=== PATIENT | male | born 1960 | race Caucasian/White ===

== ENCOUNTER → 2016-07-20 | Outpatient (CLI) | payer OTHER ==
[2016-07-12 13:05] VITALS: BMI 35.5
[2016-07-20 14:24] VITALS: BP 155/93; PULSE 69; RESP 16; TEMP 98
--- NOTE | 2016-07-20 15:22 | P.CONS ---
History of Present Illness - Reason for Consult Consult date: 07/20/16 - History of Present Illness This is the initial consultation visit for this 56 years old male with a chronic history of severe low back pain and left sided abdominal pain, she was diagnosed with lymphoma, in 2010, and he had chemotherapy and he was diagnosed with enlarged spleen, and later on he had recurrence of his left-sided abdominal pain after he had recurrence of lymphoma, he gets another cycle of chemotherapy, and his abdominal pain improved, but he continued to have severe low back pain, localized in the low back area with radiation to the posterior and lateral aspect of his lower extremity, he denies any motor or sensory deficit, he denies any change in the bowel movement or urination, but she reported that the intensity of the pain fluctuates between 6/10 and increases with any activity to 10 over 10, he never tried any injection, he never had any surgical intervention, and he tried Neurontin but he doesn't know the dose, and he tried Ultram without any benefit, he is currently taking Flexeril would make him sleepy, and he is here today trying to find anything can help to control his pain Past Medical History Past Medical History: Cancer, Chest Pain / Angina, COPD, Osteoarthritis (OA) Additional Past Medical History / Comment(s): all over body pain, rt hip and leg , neck and back, enlarged spleen, nonhodgkins lymphoma x2- 2010, 2016. SKIN CANCER. History of Any Multi-Drug Resistant Organisms: MRSA Year Discovered:: 2012 MDRO Source:: ear Past Surgical History: Hernia Repair, Joint Replacement, Orthopedic Surgery Additional Past Surgical History / Comment(s): rt hip replacement, rt rotator cuff repair, lt wrist plate, 4 bone marrow biopsies Past Anesthesia/Blood Transfusion Reactions: Previous Problems w/ Anesthesia Additional Past Anesthesia/Blood Transfusion Reaction / Comm: woke up during surgery Past Psychological History: Depression Smoking Status: Current every day smoker Past Alcohol Use History: Occasional Additional Past Alcohol Use History / Comment(s): smoker 35 years 1 ppd quit 2013 has occasional cigarette Past Drug Use History: None Reported Additional Drug Use History / Comment(s): MARIJUANA USED 2 WEEKS AGO- "NOT A LOT ". - Past Family History Mother Family Medical History: No Reported History Medications and Allergies Home Medications Medication Instructions Recorded Confirmed Type Albuterol Inhaler [Ventolin Hfa 1 - 2 puff INHALATION DAILY PRN 07/12/16 History Inhaler] Ascorbic Acid [Vitamin C] 1,000 mg PO DAILY 07/12/16 07/20/16 History Aspirin [Adult Low Dose Aspirin EC] 81 mg PO DAILY 07/12/16 07/20/16 History Cholecalciferol [Vitamin D3] 1,000 unit PO DAILY 07/12/16 07/20/16 History Cyclobenzaprine [Flexeril] 10 mg PO TID PRN 07/12/16 07/20/16 History DULoxetine HCL [Cymbalta] 30 mg PO DAILY 07/12/16 07/20/16 History Ibuprofen [Motrin] 800 mg PO DAILY PRN 07/12/16 07/20/16 History Mometasone/Formoterol [Dulera 100 2 puff INHALATION BID 07/12/16 07/20/16 History Mcg/5 Mcg Inhaler] Nitroglycerin 0.4 mg SL DIRECTED PRN 07/12/16 07/20/16 History Pantoprazole Sodium [Protonix] 20 mg PO DAILY 07/12/16 07/20/16 History Allergies Allergy/AdvReac Type Severity Reaction Status Date / Time bee sting Allergy Anaphylaxis Uncoded 07/20/16 14:00 Physical Exam Vitals: Vital Signs Temp Pulse Resp BP Pulse Ox 07/20/16 14:11 98 F 69 16 155/93 97 Social history : smoker , NO ETOH , used marijuana occasionaly Review of Systems : 1- Constitutional : no chills , no fever , no night sweats , 2- Ears : no ear discharge , no change in hearing 3-Nose, Mouth ,Throat ; no bleeding gums, no sore throat , no epistaxis , 4-Cardiovascular : Denies chest pain, , no orthopnea , no palpitation 5-Respiratory : Denies cough , no dyspnea , no hemoptysis 6-Gastrointestinal :, no change in bowel habits , no coffee- ground emesis . 7-Genitourinary : No hematuria , no discharge , no incontinence, 8-Musculoskeletal : No gait dysfunction , report low back pain , 9- Neurological : no ataxia , no tremor , no sezure , 10-Psychatric , no suicidal ideation no hallucination 11- Endocrine : no cold intolerence , no polyuria , no polydypsia , 12-Hematologic : History of lymphoma 13-Allergic / immunology : no angioedema , no wheezing ,no allergic rhinitis 14-Integumentary : no brttle nails , no change hair / nails , no foot/leg ulcers . Physical Examinations : 1-Constitutional : Cooperative , not in acute distress . 2-HEENT : nech ; supple , no Lymphadenopathy , no Thyromegaly , :eyes , no icterus, no photophobia . ENT : , normal oropharynx , no Thrush 3- Respiratory : Chest clear to auscultations Bilaterally , no wheezing . 4- Cardiovascular : regular rate and rhythem , S1 , S2 , no S3 , no S4. 5- Gastrointestinal: abdomen soft minimal tenderness left upper quadrant, no organomegally . 6- Genitourinary : Defferred . 7-Integumentary : No cellulitis , no ulcers , normal skin turgor , no cyanotic . 8- neurologic : Cranial nerve II to XII intact , no focal neurological deffecit 9-psychatric : alert , oriented X 3 , appropriate affect , intact judgment and insight . 10-Lymphatic : no Lymphadenopathy. 11- musculoskeltal: normal gait , exams of the cervical spine = motor stregnth in the deltoid and biceps, normal right side , normal Left side exams of the Lumber spine = moter stegnth lower extremities , thigh and legs 5/5 Right side , 5/5 Left side deep tendon reflexes : normal Knee Jerk , normal ankle Jerk positive lumber facet Loading Test Range of motion of the lumbar spine Flexion 30 degrees, extension 10 degrees strait leg raising test negative bilaterally Fabere test negative bilaterally Results Comments: Computed tomography scan area of the lumbar spine in February 2016 = L3 4 through L5-S1 lumbar bulging disc disease and mild foraminal stenosis, and lumbar facet arthropathy Assessment and Plan Plan: Assessment and plan = - Chronic low back pain secondary to lumbar degenerative disc disease , lumbar spondylosis with facet arthropathy without myelopathy , Patient had right hip avascular necrosis after she was treated with steroids ( during his chemo therapy to Tx lymphoma) and he has to have a right hip replacement The patient signed narcotic agreement today, and he was instructed not to use any marijuana in the future, and we told him that any use of marijuana would be violation of the contract we can discharge him from the clinic The patient was counseled about risk of opioid use, psychological risk associated with opioids discussed with the patient, body mass index and exercise. Patient signed the narcotic agreement , and was orally counseled not to overuse , abuse , divert, or sell medications ,and take them as prescribed only , and the patient was counseled against driving and while you are using the narcotic medication also not to use alcohol or any illicit drugs and the patient verbalized understanding that lack of compliance and could result in failure to renew narcotics prescriptions and possible discharge from the clinic - diagnoses, prognosis, and treatment options including but not limited to physical therapy, surgical interventions, interventional therapies and medication management including narcotics and adjuvant medication were discussed with the patient and all questions answered to the patient's satisfaction. -medication refile =1-[place] 5/325 every 6 hours dispensed 90 2-Neurontin 100 mg 3 times a day 3-Flexeril 5 mg tablet 3 times a day -procedure= bilateral medial branch block lumbar area at l34/L4-L5/L5-S1 elicits positive on 2 different occasions then we will do radiofrequency ablation of the medial branch lumbar area NO steroid will be used for the procedure because the patient had avascular necrosis of the headache after he was treated with the stimulator., next Visit will do a urine drug screen Time with Patient: Greater than 30
== END | disposition home or self-care (01) ==
LOC: PNWHC3 13:15
PROVIDERS: ATTEND Specialist
DX: M51.36 Other intervertebral disc degeneration, lumbar region (principal); M47.816 Spondylosis without myelopathy or radiculopathy, lumbar region; M46.96 Unspecified inflammatory spondylopathy, lumbar region; M87.188 Osteonecrosis due to drugs, other site; T38.0X5A Adverse effect of glucocorticoids and synthetic analogues, initial encounter; F32.9 Major depressive disorder, single episode, unspecified; Z79.899 Other long term (current) drug therapy; F17.200 Nicotine dependence, unspecified, uncomplicated; Z91.030 Bee allergy status; Z85.72 Personal history of non-Hodgkin lymphomas; Z92.21 Personal history of antineoplastic chemotherapy; R07.9 Chest pain, unspecified; I20.9 Angina pectoris, unspecified; J44.9 Chronic obstructive pulmonary disease, unspecified; M19.90 Unspecified osteoarthritis, unspecified site
CPT/HCPCS: 99201

== ENCOUNTER 2016-08-29 08:11 | Day surgery (SDC) | payer OTHER ==
[2016-08-25 15:06] VITALS: BMI 37.1
[~2016-08-29 08:11] MED LIST: LACTATED RINGERS 1,000 ML IV SCH
[2016-08-29 08:27] VITALS: TEMP 97.7
[2016-08-29] MEDS ORDERED: BUPIVACAINE (PF) 0.5% 30 ML VIAL ONE (09:03)
--- NOTE | 2016-08-29 09:28 | P.PCN ---
Date of Procedure: 08/29/16 Procedure(s) Performed: PREOPERATIVE DIAGNOSIS : 1- Lumbar spondylosis with Facet Arthropathy without myelopathy POSTOPERATIVE DIAGNOSIS: 1- Lumbar spondylosis with Facet Arthropathy without myelopathy . PROCEDURE: Diagnostic bilateral L3 -4 , L4 -5 , and L5-S1 medial branch block under fluoroscopy ANESTHESIA: Local with 1% lidocaine 6 ml , EBL: Minimal COMPLICATION: None. PROCEDURE INDICATION: Chronic low back pain secondary to Facet arthropathy unresponsive to conservative treatment. PROCEDURE DESCRIPTION: the patient was seen and identified in the preop holding area , risks and benefits and possible complications of the procedure and alternative were discussed with the patient, and the patient agreed to proceed with the procedure and signed the consent IV was started and vital signs monitored during the procedure and fluoroscopy was used to maximize the benefit and accuracy of the needle placement, patient was taken to the procedure room and placed in prone position vital signs monitored in the back prepped with chlorhexidine X3 then under strict sterile technique using a right oblique fluoroscopy ,the junction of the transverse process and the superior articulating process of the right L3- 4 , L4- 5, and L5-S1 vertebra which corresponding to the fluoroscopy image of the eye of the Sascha dog on the block side for the medial branches and subsequently , after local infiltration of skin and subcu tissuies with lidocaine 1% one mL at each level ,then 25-gauge Quincke-type needles , 3 needle was used , each one of them placed at the junction of the base of the transverse process and the superior articular process at the appropriate level, and the needle was advanced until the periosteum contacted, needle placement confirmed with AP oblique and lateral view and after appropriate needle placement confirmed, and after negative aspiration for heme and CSF and there was no paresthesia 1-1/2 mL of Marcaine 0.5% , then half mL injected at each level after negative aspiration the needle subsequently removed and the same procedure repeated for the left side at left side at L3-4, L4- 5 and L5-S1 levels. At the end of the procedure and the needles removed and a bandage applied after the skin was cleaned the cleaning solution patient taken to recovery room in stable condition and monitors in the recovery room for 20-30 minutes and discharged home in stable condition after discharge criteria met and patient will follow up with the pain clinic in 2-4 weeks No IV sedation was given, because patient had food 4 hours before the procedure , and no steroid was used for the procedure.
--- NOTE | 2016-08-29 09:39 | FL ---
Fluoroscopy INDICATION: Pain FINDINGS: Fluoroscopy time: 9 seconds. Images obtained: 4. IMPRESSIONS: 1. Documentation of fluoroscopy.
[2016-08-29 09:52] VITALS: BP 134/82; PULSE 66; RESP 16
== END 2016-08-29 09:59 | disposition home or self-care (01) ==
LOC: ORPAIN 08:11
PROVIDERS: ATTEND Specialist
DX: G89.29 Other chronic pain (principal); M47.816 Spondylosis without myelopathy or radiculopathy, lumbar region; M46.96 Unspecified inflammatory spondylopathy, lumbar region; C85.90 Non-Hodgkin lymphoma, unspecified, unspecified site; I25.10 Atherosclerotic heart disease of native coronary artery without angina pectoris; J44.9 Chronic obstructive pulmonary disease, unspecified; F17.200 Nicotine dependence, unspecified, uncomplicated; Z91.030 Bee allergy status
CPT/HCPCS: 80307; 80346; 80364

== ENCOUNTER 2016-09-29 07:37 | Day surgery (SDC) | payer OTHER ==
[2016-09-28 09:16] VITALS: BMI 35.5
[2016-09-29 07:59] VITALS: RESP 18; TEMP 96.6
[2016-09-29] MEDS ORDERED: LIDOCAINE 1% 20 ML VIAL (10MG/ML) FOR IV START SQ ONE (08:01)
[2016-09-29] MEDS ORDERED: TRIAMCINOLONE ACETONIDE 40 MG/ML 1 ML VIAL ONE (08:27)
[2016-09-29] MEDS ORDERED: BUPIVACAINE (PF) 0.5% 30 ML VIAL ONE (08:27)
[2016-09-29] MEDS ORDERED: fentaNYL (PF) 50 MCG/ML 2 ML AMP ONE (08:27)
[2016-09-29] MEDS ORDERED: MIDAZOLAM 2 MG/2 ML VIAL ONE (08:27)
[2016-09-29] MEDS ORDERED: IV FLUID CONTINUATION 1,000 ML IV ONE (08:57)
--- NOTE | 2016-09-29 08:57 | P.PCN ---
Date of Procedure: 09/29/16 Procedure(s) Performed: PREOPERATIVE DIAGNOSIS : 1- Lumbar spondylosis with Facet Arthropathy without myelopathy . POSTOPERATIVE DIAGNOSIS: 1- Lumbar spondylosis with Facet Arthropathy without myelopathy . PROCEDURE: Diagnostic bilateral L3 -4 , L4 -5 , and L5-S1 medial branch block under fluoroscopy ANESTHESIA: Local with 1% lidocaine 6 ml ; IV sedation with Versed 2 mg and Fentanyl 100 mcg. EBL: Minimal COMPLICATION: None. IV FLUIDS: 100 mL of normal saline. PROCEDURE INDICATION: Chronic low back pain secondary to Facet arthropathy unresponsive to conservative treatment. PROCEDURE DESCRIPTION: the patient was seen and identified in the preop holding area , risks and benefits and possible complications of the procedure and alternative were discussed with the patient, and the patient agreed to proceed with the procedure and signed the consent IV was started and vital signs monitored during the procedure and fluoroscopy was used to maximize the benefit and accuracy of the needle placement, and sedation was given to decrease patient anxiety, patient was taken to the procedure room and placed in prone position vital signs monitored in the back prepped with chlorhexidine X3 then under strict sterile technique using a right oblique fluoroscopy ,the junction of the transverse process and the superior articulating process of the right L3- 4 , L4- 5, and L5-S1 vertebra which corresponding to the fluoroscopy image of the eye of the Sascha dog on the block side for the medial branches and subsequently , after local infiltration of skin and subcu tissuies with lidocaine 1% one mL at each level ,then 22- gauge Quincke-type needles , 3 needle was used , each one of them placed at the junction of the base of the transverse process and the superior articular process at the appropriate level, and the needle was advanced until the periosteum contacted, needle placement confirmed with AP oblique and lateral view and after appropriate needle placement confirmed, and after negative aspiration for heme and CSF and there was no paresthesia 1-1/2 mL of Marcaine 0.5% mixed with 40 mg Kenalog , then half mL injected at each level after negative aspiration the needle subsequently removed and the same procedure repeated for the left side at left side at L3-4, L4- 5 and L5-S1 levels. At the end of the procedure and the needles removed and a bandage applied after the skin was cleaned the cleaning solution patient taken to recovery room in stable condition and monitors in the recovery room for 20-30 minutes and discharged home in stable condition after discharge criteria met and patient will follow up with the pain clinic in 2-4 weeks
--- NOTE | 2016-09-29 09:07 | FL ---
EXAMINATION TYPE: FL guided pain mgmt statistic DATE OF EXAM: 09/29/2016 8:56 AM HISTORY: Pain BILATERAL FACET INJECTIONS was performed. 29 SEC FL, 4 FILMS SCANNED
[2016-09-29 09:24] VITALS: BP 127/81; PULSE 62
== END 2016-09-29 09:38 | disposition home or self-care (01) ==
LOC: ORPAIN 07:37
PROVIDERS: ATTEND Specialist
DX: G89.29 Other chronic pain (principal); M54.5 Low back pain; M47.816 Spondylosis without myelopathy or radiculopathy, lumbar region; M46.96 Unspecified inflammatory spondylopathy, lumbar region; Z91.030 Bee allergy status; Z91.038 Other insect allergy status
CPT/HCPCS: 64493; 64494; 64495; 99152; J2250; J3301; J3010

== ENCOUNTER 2016-11-03 11:51 | Day surgery (SDC) | payer OTHER ==
[2016-11-01 11:47] VITALS: BMI 35.5
[2016-11-03] MEDS: LACTATED RINGERS 1,000 ML IV SCH ×2 (12:22→12:28)
[2016-11-03 12:24] VITALS: RESP 18; TEMP 96.4
[2016-11-03] MEDS ORDERED: MIDAZOLAM 2 MG/2 ML VIAL ONE (12:32)
[2016-11-03] MEDS ORDERED: BUPIVACAINE (PF) 0.5% 30 ML VIAL ONE (12:32)
[2016-11-03] MEDS ORDERED: DEXAMETHASONE SOD PHOS (MDV) 100 MG/10 ML VIAL ONE (12:32)
[2016-11-03] MEDS ORDERED: fentaNYL (PF) 50 MCG/ML 2 ML AMP ONE (12:32)
--- NOTE | 2016-11-03 13:06 | P.PCN ---
Date of Procedure: 11/03/16 Preoperative Diagnosis: Postoperative Diagnosis: Procedure(s) Performed: PREOPERATIVE DIAGNOSIS: 1-Lumbar Spondylosis with Facet Arthropathy without myelopathy. 2- Lumber degenerative disc disease POSTOPERATIVE DIAGNOSIS: 1- Lumbar Spondylosis with Facet Arthropathy without myelopathy. 2- Lumber degenerative disc disease. PROCEDURES : Right Radiofrequency thermocoagulation, L3-L4, L4-L5, and L5-S1 medial branch, with fluoroscopic guidance ANESTHESIA: IV sedation with versed 2 mg and fentaneyl 100 mcg and local infiltration with lidocaine 1% 6 ml EBL: Minimal PROCEDURE INDICATION: The patient with low back pain secondary to lumbar facet arthropathy who had more than 50% relief of her pain with previous diagnostic lumbar medial branch block with bupivacaine. PROCEDURE DESCRIPTION / TECHNIQUE: The patient was seen and identified in the preoperative area. Risks, benefits, complications, including but not limited to risk of infection ,bleeding , allergic reactions to the medications and no complete pain releife , and alternatives were discussed with the patient, the patient agreed to proceed with the procedure and signed the consent. IV was started. Vital signs remained stable throughout the procedure. Patient was taken to the OR and time out was completed. The patient was placed in the prone position on the procedure table. The lumber area was prepped and draped in the usual sterile fashion. . Vital signs were closely monitored during the procedure .IV sedation was used during the procedure to decrease patients anxiety. Using AP and then oblique fluoroscopy, the ``eye of the Sascha dog corresponding to the connection between the superior and transverse articular processes of right L3, L4, and L5 were identified, marked, and localized with 1 % lidocaine. Subsequently, a 18 [id number] radiofrequency cannula with a 10- mm active tip was advanced guided by fluoroscopy to each of the ``eyes of the Sascha dog at right L3, L4, and L5. Each site then underwent sensory testing at 50 Hz and 0 to 1 volt and motor testing at 2.5 Hz and 0 to 3 volt with local stimulation, but no radicular symptoms down the legs. Thereafter the right L3-4, L4-5, and L5-S1 sites underwent radiofrequency thermocoagulation at 80 degrees celsius for 90 seconds after injecting 0.5 ml of PF lidocaine 1%. then After the thermocoagulation done , 1 ml of the block solution containing Kenalog 40 mg and 3 ml of marain 0.5% was injected at the right L3- 4 , L4-5 , and L5-S1, levels after negative aspiration of CSF and blood and with no paresthesias. Cannulas were retracted while injecting lidocaine 1% until the needle is out. At the end of the procedure, the skin was cleansed and bandages were applied. COMPLICATIONS: No acute complications. DISPOSITION / PLANS: The patient was placed in a supine position and transferred to the recovery area in a stable condition for observation and was discharged from the recovery room after meeting discharge criteria. Home discharge instructions given to the patient by the staff. The patient was reexamined prior to discharge. The patient will schedule a follow up in the clinic in 2-4 weeks. Patient given prescription refill for [place] 5/325 every 6-8 hours dispense 90 with 1 refill, and the Neurontin 100 mg every 8 hours dispense 90 with 1 refill and Flexeril 10 mg every 8 hours dispense 90 with 1 refill Implants: Indications for Procedure: Operative Findings: Description of Procedure:
--- NOTE | 2016-11-03 13:11 | FL ---
EXAMINATION TYPE: FL guided pain mgmt statistic DATE OF EXAM: 11/03/2016 CLINICAL HISTORY: Low back pain. TECHNIQUE: Fluoroscopy. COMPARISON: None. FINDINGS: Fluoroscopic guidance was provided during pain relief procedure performed by Dr. Tim . A total of 13 seconds of fluoroscopic time was utilized during the procedure and 3 spot images are acquired. Images acquired shows needle localization at several levels in the lower lumbar spine. IMPRESSION: As Above.
[2016-11-03] MEDS ORDERED: IV FLUID CONTINUATION 1,000 ML IV ONE (13:36)
[2016-11-03 13:42] VITALS: BP 132/76; PULSE 86
== END 2016-11-03 14:06 | disposition home or self-care (01) ==
LOC: ORPAIN 11:51
PROVIDERS: ATTEND Specialist
DX: M47.816 Spondylosis without myelopathy or radiculopathy, lumbar region (principal); M46.96 Unspecified inflammatory spondylopathy, lumbar region; M51.36 Other intervertebral disc degeneration, lumbar region; Z91.030 Bee allergy status
CPT/HCPCS: 64635; 64636; 99152; J2250; J3010; J1100

== ENCOUNTER 2016-12-15 08:53 | Day surgery (SDC) | payer OTHER ==
[2016-12-14 10:22] VITALS: BMI 34.7
[~2016-12-15 08:53] MED LIST changes: +LACTATED RINGERS 1,000 ML IV ONE; -LACTATED RINGERS 1,000 ML IV SCH
[2016-12-15] MEDS ORDERED: LIDOCAINE 1% 20 ML VIAL (10MG/ML) FOR IV START INTRADERMA ONE (09:25)
[2016-12-15 09:28] VITALS: TEMP 97.2
--- NOTE | 2016-12-15 09:50 | P.PCN ---
Date of Procedure: 12/15/16 Preoperative Diagnosis: Postoperative Diagnosis: Procedure(s) Performed: Implants: Surgeon: Shabbir Beck Pathology: none sent Condition: stable Disposition: PACU Indications for Procedure: Operative Findings: Description of Procedure: PREOPERATIVE DIAGNOSIS: Lumbar spondylosis without myelopathy and facet arthropathy POSTOPERATIVE DIAGNOSIS: Lumbar spondylosis without myelopathy and facet arthropathy PROCEDURES: Left Radiofrequency thermocoagulation, L3-L4, L4-L5, and L5-S1 medial branch, with fluoroscopic guidance. ANESTHESIA: 1% lidocaine plain; Conscious sedation with versed/fentanyl EBL: Minimal PROCEDURE INDICATION: The patient with low back pain secondary to lumbar arthropathy who had more than 50% relief of pain with previous diagnostic lumbar medial branch block with bupivacaine. Patient presents for left lumbar RFA today after good relief from right side; no use of blood thinners except ASA 81 mg. PROCEDURE DESCRIPTION / TECHNIQUE: The patient was seen and identified in the preoperative area. Risks, benefits, complications, and alternatives were discussed with the patient (including but not limited to incomplete pain relief , bleeding, infection, nerve damage, and allergies to medications), the patient agreed to proceed with the procedure and signed the consent after all questions were answered. Patient was taken to the OR and time out was completed to verify proper patient , position, laterality of pain, and allergies. Pt was placed in the prone position. IV was started. Vital signs remained stable throughout the procedure. A pillow was placed under the patients chest to decrease lordosis. The lumbosacral area was prepped and draped in the usual sterile fashion. Vital signs were closely monitored during the procedure. Conscious sedation was used during the procedure to decrease patients anxiety. Using AP and then oblique fluoroscopy, the eye of the Sascha dog corresponding to the connection between the superior and transverse articular processes of left L4, L5 and top of the sacrum were identified, marked, and localized with 1% lidocaine. Subsequently, a 20 gauge, 100-mm radiofrequency cannula with a 10-mm active tip was advanced guided by fluoroscopy to each of the eyes of the Sascha dog at left L3, L4, and L5 medial branches. Each site then underwent sensory testing at 50 Hz and 0 to 1 volt and motor testing at 2 Hz and 0 to 3 volt with local stimulation, but no radicular symptoms down the legs. Thereafter the left L3, L4, and L5 medial branch sites underwent radiofrequency thermocoagulation at 80 degrees Celsius for 90 seconds after injecting 0.5 ml of PF lidocaine 1%. After thermocoagulation, 1 ml of the block solution containing Kenalog 40 mg and 2 mL of preservative-free normal saline was injected at the left L3, L4, and L5 medial branch levels after negative aspiration of CSF and blood and with no paresthesias. Cannulas were retracted while injecting lidocaine 1% until the needles were removed. At the end of the procedure, the skin was cleansed and bandages were applied. COMPLICATIONS: No acute complications. DISPOSITION / PLANS: The patient was placed in a supine position and transferred to the recovery area in a stable condition for observation and was discharged from the recovery room after meeting discharge criteria. Home discharge instructions given to the patient by the staff. The patient was reexamined prior to discharge and there were no issues. The patient will schedule a follow up in the clinic in 2-4 weeks as both RFAs completed.
--- NOTE | 2016-12-15 09:58 | FL ---
EXAMINATION TYPE: FL guided pain mgmt statistic DATE OF EXAM: 12/15/2016 HISTORY: Pain 14 sec FL, 4 images scanned
[2016-12-15] MEDS ORDERED: IV FLUID CONTINUATION 1,000 ML IV ONE (10:06)
[2016-12-15 10:11] VITALS: RESP 16
[2016-12-15 10:27] VITALS: BP 116/73; PULSE 66
== END 2016-12-15 10:36 | disposition home or self-care (01) ==
LOC: ORPAIN 08:53
PROVIDERS: ATTEND Anesthesiology
DX: M47.816 Spondylosis without myelopathy or radiculopathy, lumbar region (principal); M46.96 Unspecified inflammatory spondylopathy, lumbar region; I20.9 Angina pectoris, unspecified; E78.5 Hyperlipidemia, unspecified; K21.9 Gastro-esophageal reflux disease without esophagitis; Z79.82 Long term (current) use of aspirin; Z79.891 Long term (current) use of opiate analgesic; Z79.899 Other long term (current) drug therapy; Z91.030 Bee allergy status
CPT/HCPCS: 64635; 64636 ×2; 99152; J3301; 99153

== ENCOUNTER → 2017-01-30 | Outpatient (CLI) | payer OTHER ==
[2017-01-30 12:07] VITALS: BP 157/86; PULSE 61; RESP 16
--- NOTE | 2017-01-30 12:26 | P.PN ---
Progress Note - Text Patient returns for followup for chronic back pain with radiation to LLE. Patient recently underwent bilateral lumbar RFA, which provided some relief for 3-4 weeks' interval apiece, but patient is complaining of pain now that is slightly higher in his lumbar spine than his usual pain, and he is a poor historian, so statements are somewhat equivocal. Patient continues on [place], Neurontin, Flexeril medications for pain with good relief. Patient denies adverse drug effects from medications. Today, pt denies new-onset weakness, bowel/bladder incontinence, or any other signs or symptoms of cauda equina syndrome. There are no signs of acute intoxication, and no indications of medication diversion or overuse. In addition to above, 13-point review of systems is also negative for chest pain , shortness of breath, changes in vision, changes in hearing, new onset weakness , abdominal pain, diarrhea, extreme fatigue, malaise, fever, skin changes, homicidal or suicidal ideation, or bowel or bladder incontinence. Vital Signs: Reviewed in EMR Gen: WDWN, AAOx3, NAD HEENT: NCAT, EOMI, hearing grossly normal Pulm: resp unlabored Abd: soft, NT, ND Neck: supple, trachea midline ROM in flexion lumbar spine: reduced ROM in extension lumbar spine: reduced Lumbar paravertebral tenderness: + Facet loading: + bilateral, L >> R SI joint tenderness: neg Christopher's test: + L > R side Straight leg raise: neg Neuro: CN II-XII grossly intact, muscle strength lower extremities PRESERVED Imaging: Reviewed in EMR Assessment: 1. lumbar spondylosis without myelopathy 2. SIJ dysfunction 3. chronic pain syndrome Plan: 1. Explanation: Opioid and psychological risk scores were reviewed. Diagnoses , prognoses, and multiple treatment options including but not limited to physical therapy, interventional therapies, adjuvant medical therapies, narcotic medication therapies, and surgery were discussed with the patient and all questions were answered to the patient's satisfaction. 2. Opioid agreement: Patient has previously signed narcotic agreement, and was orally counseled to not overuse, abuse, divert, or cell medications, and to take them as prescribed by only 1 healthcare provider. The patient was also counseled to store opioid medications in a safe and preferably locked location. Patient was also counseled against driving or operating heavy equipment while using narcotic medications and also to not use alcohol or any illicit or recreational drugs. The patient verbalized understanding that lack of compliance with any of the above and likely result in failure to renew narcotic prescriptions, possible discharge from the clinic, and possible legal ramifications thereafter if indicated. 3. Counseling: The patient was counseled extensively on SMOKING CESSATION, BODY MASS INDEX, EXERCISE. Specifically, the patient was instructed regarding the importance of smoking cessation, weight control, and exercise in the context of both chronic pain and overall health. 4. Procedures: none for now 5. Consultations: None 6. Investigations: None 7. Medications: [place] 5/325 #90 with one refill, Flexeril 10 mg #90 and Neurontin 100 mg #90 with two refills 8. Disposition: f/u for re-eval in 8 weeks PQRS measures: 1-Patient's medications are documented in the chart. 2-Tobacco use is positive, counseling given 3-Patient has not had a pneumococcal vaccine. 4-Advanced care planning discussed, patient unable to give. 5-Opioid contract signed with the patient. 6-Pain positive, follow-up visit or procedure scheduled 7-Patient's blood pressure measured and documented, and patient will follow up with the primary care due to hypertension. 8-Patient's weight was measured, and body mass index ABOVE the normal limits, and counseling was done. Patient instructed to follow up with PCP. 9-Patient WAS NOT identified as an unhealthy alcohol user.
== END ==
LOC: PNWHC3 11:38
PROVIDERS: ATTEND Anesthesiology
DX: M47.816 Spondylosis without myelopathy or radiculopathy, lumbar region (principal); M53.3 Sacrococcygeal disorders, not elsewhere classified; Z79.891 Long term (current) use of opiate analgesic; Z79.899 Other long term (current) drug therapy
CPT/HCPCS: 99211

== ENCOUNTER → 2017-03-27 | Outpatient (CLI) | payer OTHER ==
[2017-03-27 13:37] VITALS: BP 133/79; PULSE 63; RESP 18
--- NOTE | 2017-03-28 05:45 | P.PN ---
Subjective Progress Note Date: 03/27/17 This is a follow-up visit for this 56 years old male with a chronic history of severe low back pain, diagnosed with lumbar spondylosis and lumbar degenerative disc disease, patient had a new MRI done recently showed patient had multilevel lumbar foraminal stenosis and multilevel broad bulging disc disease, and multilevel lumbar facet arthropathy, patient currently on [place] 5/325 every 8 hours Neurontin 100 mg 3 times a day and Flexeril 10 mg 3 times a day, denies any side effect of the medication but he does report that the current medication is not helping him enough time he continued to have severe low back pain, he denies any change in the bowel movements or urination he denies any motor or sensory deficit, denies any fever or night sweats Objective - Vital Signs Vital signs: Vital Signs Temp Pulse 63 03/27/17 13:33 Resp 18 03/27/17 13:33 BP 133/79 03/27/17 13:33 Pulse Ox 96 03/27/17 13:33 Intake & Output 03/27/17 03/27/17 03/28/17 06:59 18:59 06:59 Weight 102.058 kg - Exam Physical Examinations : 1-Constitutiona : Cooperative , not in acute distress . 2-HEENT : nech ; supple , no Lymphadenopathy , normal thyroid size . eyes : no ptosis , no icterus, no photophobia . ENT : normal of hearing , normal oropharynx , no Thrush . 3- Respiratory : Chest clear to auscultations Bilaterally , no wheezing , no Rhonchi . 4- Cardiovascular : regular rate and rhythem , S1 , S2 , no S3 , no S4. 5- Gastrointestinal : abdomen soft no tenderness , bowel sounds positive all four quadrents , no organomegally . 6- Genitourinary : Defferred . 7- neurologic : Cranial nerve II to XII intact , no focal neurological deffecit . 8-psychatric : alert , oriented X 3 , appropriate affect , intact judgment and insight . 9-Lymphatic : no Lymphadenopathy . 10- musculoskeltal : , Lumber spine = normal moter stegnth lower extremities ,thigh and legs .5/5 deep tendon reflexes : normal Knee Jerk , normal ankle Jerk . positive lumber facet Loading Test strait leg raising test negative bilaterally Fabere test negative bilaterally Assessment and Plan Plan: Assessment and plan= chronic low back pain secondary to lumbar degenerative disc disease , lumbar spondylosis with lumbar facet arthropathy , chronic and current use of high-risk medication (opioids) Patient denies any side effects of the current pain medication and the current treatment/medication ML and the patient to do activity of daily living , Diagnoses, prognosis, treatment options, including but not limited to physical therapy, medication management, interventional therapies, and surgery, were discussed with the patient All the questions answered Patient signed the narcotic agreement, and he was orally counseled, not to overuse, not to abuse, not to Divert , not tp sell pain medication, and to take it as prescribed only, Patient was counseled not to drive or operate heavy equipment while using narcotic medication, and advised not to use alcohol or any Illicit drugs while using the narcotis, the patient's verbalized understanding that lack of compliance with any of the above instructions and will likely to cause discharge from the pain service, not to renew his narcotic prescriptions Medication managements= patient will be given prescription refills for 1-[place] 5/325 every 8 hours dispense 90 with 1 refill 2-increasing Neurontin to 100 mg one tablet by mouth every morning 1 tablet by mouth every PM , and 2 tablets daily at bed time dispends 120 with one refil 3- Flexeril 10 mg 3 times a day dispense 90 with one refile Interventional pain management= patient could benefit from lumbar epidural steroid injections Refferal =none . Follow-up= 2 months for medication refill ,
== END ==
LOC: PNWHC3 12:05
PROVIDERS: ATTEND Specialist
DX: M51.36 Other intervertebral disc degeneration, lumbar region (principal); M47.816 Spondylosis without myelopathy or radiculopathy, lumbar region; M46.86 Other specified inflammatory spondylopathies, lumbar region; Z79.891 Long term (current) use of opiate analgesic; Z79.899 Other long term (current) drug therapy
CPT/HCPCS: 99211

== ENCOUNTER → 2017-05-23 | Outpatient (CLI) | payer OTHER ==
--- NOTE | 2017-05-23 14:13 | P.PN ---
Subjective Progress Note Date: 05/23/17 This is follow-up visit for this patient with a history of severe and chronic low back pain secondary to lumbar degenerative disc diseases , lumbar spondylosis with facet arthropathy, And lumbar foraminal stenosis , we have done radiofrequency ablation of the medial branch lumbar area, and this helped his low back pain , currently is complaining of right lower extremity pain Patients currently on 1-flexeril 10 mg tid 2-norco 5/325 q 8 h 3-neurontin 100 q 6 h Patient denies any side effects of the medication, denies excessive drowsiness or sleepiness, denies suicidal ideation, and reports that the current pain medication is NOT helping To control the pain and improve activity of daily living Patient denies any motor or sensory deficit , patient denies any fever or night sweats, denies any change in the bowel movements or urination Physical Examinations : 1-Constitutiona : Cooperative , not in acute distress . 2-HEENT : nech ; supple , no Lymphadenopathy , no Thyromegaly , normal thyroid size . eyes : no ptosis , no icterus, no photophobia . ENT : normal of hearing , normal oropharynx , no Thrush . 3- Respiratory : Chest clear to auscultations Bilaterally , no wheezing , no Rhonchi . 4- Cardiovascular : regular rate and rhythem , S1 , S2 , no S3 , no S4. 5- Gastrointestinal : abdomen soft no tenderness , bowel sounds positive all four quadrents , no organomegally . 6- Genitourinary : Defferred . 7- neurologic : Cranial nerve II to XII intact , no focal neurological deffecit . 8-psychatric : alert , oriented X 3 , appropriate affect , intact judgment and insight . 9-Lymphatic : no Lymphadenopathy . 10- musculoskeltal : exams of the cervical spine = motor strength normal bilateral upper extremities facet loading test cervical area positive. exams of the Lumber spine = motor strength lower extremities ,thigh and legs .5/5 deep tendon reflexes : normal Knee Jerk , normal ankle Jerk . lumber facet Loading Test positive strait leg raising test positive at 30 degree , RT ,LT , Fabere test positive RT and positive LT . Range of motion: Range of motion in flexion of the lumbar spine 30 degrees Range of motion range of motion of extension of the lumbar spine 10 Assessment and plan = Chronic low back pain secondary to lumbar degenerative disc disease , lumbar spondylosis with facet arthropathy without myelopathy , Complaining of increased pain and intermittent lower extremity, discussed with the patient the option of doing lumbar epidural steroid injections , but he is concerned about the risk of ,avascular necrosis, secondary to, steroid injections, because patient ,had avascular necrosis of the hip after steroid was given during chemotherapy to treat his lymphoma chronic and current use of high-risk medication (Opioids). The patient was counseled about risk of opioid use, psychological risk associated with opioids and was orally counseled to not overuse , divert,or sell dictations to take medications as prescribed only , and to restore medication in safe location , and the patient counseled against driving while using narcotic medications, and also not to use alcohol or any illicit recreational drugs, the patient's verbalized understanding that the lack of compliance will result in failure to renew narcotic prescription ,and possible discharge from the clinic - diagnoses, prognosis , and treatment options including but not limited to physical therapy, surgical interventions, interventional therapies , and medication management including narcotics and adjuvant medication were discussed with the patient and all the questions answered Reason for [place] 5/325 dispense 90 with 1 refill , and Flexeril 10 mg 3 times a day dispense 90 with 1 refill , and I will increase Neurontin dose to 100 mg 2 tablets every 8 hours patient will follow up in the pain clinic in 2 months the patient is not a candidate to have lumbar epidural steroid injection because he is concerned about avascular necrosis in the past and I told him that I cannot guarantee that this will not happen again, he shouldn't had increased low back pain we can consider doing radiofrequency ablation of the medial branch lumbar area without any steroid Objective - Vital Signs Vital signs: Vital Signs Temp Pulse 66 05/23/17 13:14 Resp 16 05/23/17 13:14 BP 145/91 05/23/17 13:14 Pulse Ox 97 05/23/17 13:14 Intake & Output 05/22/17 05/23/17 05/23/17 18:59 06:59 18:59 Weight 99.79 kg
[2017-05-24 23:05] VITALS: BP 145/91; PULSE 66; RESP 16
== END | disposition home or self-care (01) ==
LOC: PNWHC3 13:00
PROVIDERS: ATTEND Specialist
DX: M48.061 Spinal stenosis, lumbar region without neurogenic claudication (principal); M51.36 Other intervertebral disc degeneration, lumbar region; M47.816 Spondylosis without myelopathy or radiculopathy, lumbar region; M46.86 Other specified inflammatory spondylopathies, lumbar region; Z79.891 Long term (current) use of opiate analgesic; Z79.899 Other long term (current) drug therapy
CPT/HCPCS: 99211

== ENCOUNTER → 2017-07-17 | Outpatient (CLI) | payer OTHER ==
[2017-07-17 13:51] VITALS: BP 144/103; PULSE 71; RESP 18
--- NOTE | 2017-07-18 11:03 | P.PN ---
Subjective Progress Note Date: 07/17/17 This is follow-up visit for this patient with a history of severe and chronic low back pain secondary to lumbar degenerative disc diseases , lumbar spondylosis with facet arthropathy, we have done radiofrequency ablation of the medial branch lumbar area , is scheduled to have splenectomy next week ( he had enlareged spleen ) Patients currently on [place] 5/325 every 6 hours, Neurontin 200 mg 3 times a day, Flexeril 10 mg daily Patient denies any side effects of the medication, denies excessive drowsiness or sleepiness, denies suicidal ideation, and reports that the current pain medication is helping To control the pain ,and improve activity of daily living Patient denies any motor or sensory deficit , patient denies any fever or night sweats, denies any change in the bowel movements or urination Physical Examinations : 1-Constitutiona : Cooperative , not in acute distress . 2-HEENT : nech ; supple , no Lymphadenopathy , no Thyromegaly , normal thyroid size . eyes : no ptosis , no icterus, no photophobia . ENT : normal of hearing , normal oropharynx , no Thrush . 3- Respiratory : Chest clear to auscultations Bilaterally , no wheezing , no Rhonchi . 4- Cardiovascular : regular rate and rhythem , S1 , S2 , no S3 , no S4. 5- Gastrointestinal : abdomen soft no tenderness , bowel sounds positive all four quadrents , organomegally ( spleen ). 6- Genitourinary : Defferred . 7- neurologic : Cranial nerve II to XII intact , no focal neurological deffecit . 8-psychatric : alert , oriented X 3 , appropriate affect , intact judgment and insight . 9-Lymphatic : no Lymphadenopathy . 10- musculoskeltal : exams of the Lumber spine = motor strength lower extremities ,thigh and legs .5/5 deep tendon reflexes : normal Knee Jerk , normal ankle Jerk . lumber facet Loading Test positive strait leg raising test positive at 30 degree , RT ,LT , Fabere test positive RT and positive LT . Range of motion: Range of motion in flexion of the lumbar spine 30 degrees Range of motion range of motion of extension of the lumbar spine 10 Assessment and plan = Chronic low back pain secondary to lumbar degenerative disc disease , lumbar spondylosis with facet arthropathy without myelopathy , chronic and current use of high-risk medication (Opioids). The patient was counseled about risk of opioid use, psychological risk associated with opioids and was orally counseled to not overuse , divert,or sell dictations to take medications as prescribed only , and to restore medication in safe location , and the patient counseled against driving while using narcotic medications, and also not to use alcohol or any illicit recreational drugs, the patient's verbalized understanding that the lack of compliance will result in failure to renew narcotic prescription and possible discharge from the clinic - diagnoses, prognosis, and treatment options including but not limited to physical therapy, surgical interventions, interventional therapies , and medication management including narcotics and adjuvant medication were discussed with the patient and all the questions answered Patient had a history of avascular necrosis of the hip and is concerned about the side effect of the steroid, in the future if he has to do any interventional pain procedure we have to do it without any steroid ( RFA of the medial branch ) , prescription refille for, [place] 5/325 every 6 hours dispense 90 with 1 refill was given Patient will have splenectomy surgery in the next few days, Objective - Vital Signs Vital signs: Vital Signs Temp Pulse 71 07/17/17 13:46 Resp 18 07/17/17 13:46 BP 144/103 07/17/17 13:46 Pulse Ox 97 07/17/17 13:46 Intake & Output 07/17/17 07/18/17 07/18/17 18:59 06:59 18:59 Weight 104.326 kg
== END | disposition home or self-care (01) ==
LOC: PNWHC3 13:08
PROVIDERS: ATTEND Specialist
DX: G89.29 Other chronic pain (principal); M51.36 Other intervertebral disc degeneration, lumbar region; M47.816 Spondylosis without myelopathy or radiculopathy, lumbar region; M46.96 Unspecified inflammatory spondylopathy, lumbar region; Z79.891 Long term (current) use of opiate analgesic; Z79.899 Other long term (current) drug therapy
CPT/HCPCS: 99211

== ENCOUNTER → 2017-07-19 | Outpatient (CLI) | payer OTHER ==
[2017-07-19 14:03] LABS: Basophils % (A) 0 %; Eosinophils # (A) 0.2 k/uL (0-0.7); Eosinophils % (A) 3 %; HCT 47.2 % (39.0-53.0); HGB 15.3 gm/dL (13.0-17.5); Lymphocytes # (A) 1.1 k/uL (1.0-4.8); Lymphocytes % (A) 26 %; MCH 28.3 pg (25.0-35.0); MCHC 32.4 g/dL (31.0-37.0); MCV 87.4 fL (80.0-100.0); Mean Platelet Volume 7.3; Monocytes # (A) 0.3 k/uL (0-1.0); Monocytes % (A) 7 %; Neutrophils # (A) 2.6 k/uL (1.3-7.7); Neutrophils % (A) 60 %; RDW 13.8 % (11.5-15.5); WBC 4.3 k/uL (3.8-10.6)
[2017-07-19 15:10] LABS: Platelet Count 82 k/uL (150-450)
== END | disposition home or self-care (01) ==
LOC: LABPAT 12:50
PROVIDERS: ATTEND Surgery
DX: Z01.818 Encounter for other preprocedural examination (principal); Z01.812 Encounter for preprocedural laboratory examination
CPT/HCPCS: 36415; 85025; 93005

== ENCOUNTER 2017-07-20 06:44 | Observation (INO) | payer OTHER ==
[2017-07-18 12:12] VITALS: BMI 37.1
[~2017-07-20 06:44] MED LIST changes: +HEPARIN SODIUM,PORCINE 5,000 UNIT/ML 1 ML VIAL SQ ONE; -LACTATED RINGERS 1,000 ML IV ONE; +ONDANSETRON 4 MG/2 ML VIAL IVP ONE; +ceFAZolin IN SWFI 2 GM/20 ML SYRINGE IVP ONE; +fentaNYL (PF) 50 MCG/ML 2 ML AMP IV PRN
[2017-07-20] MEDS ORDERED: LIDOCAINE 1% 20 ML VIAL (10MG/ML) FOR IV START INTRADERMA ONE (07:42)
[2017-07-20] MEDS ORDERED: ONDANSETRON 4 MG/2 ML VIAL IVP ONE (07:45)
[2017-07-20] MEDS: LACTATED RINGERS 1,000 ML IV SCH ×4 (07:45→18:57)
--- NOTE | 2017-07-20 07:50 | P.GSHP ---
History of Present Illness H&P Date: 07/20/17 Chief Complaint: Left upper quadrant pain, splenomegaly This a 57-year-old male referred from Dr. Rojas. Patient's had complaints of left upper quadrant pain. His CAT scan shows splenomegaly. He has a history of lymphoma. Patient states his pain is worsened over the last month. Past Medical History Past Medical History: Cancer, Chest Pain / Angina, COPD, Dementia, Osteoarthritis (OA) Additional Past Medical History / Comment(s): all over body pain, rt hip and leg , neck and back pain, enlarged spleen, nonhodgkins lymphoma x2- 2010, 2016. , SKIN CANCER. History of Any Multi-Drug Resistant Organisms: MRSA Date of last positivie culture/infection: 2012 MDRO Source:: ear Past Surgical History: Heart Catheterization, Hernia Repair, Joint Replacement, Orthopedic Surgery Additional Past Surgical History / Comment(s): rt hip replacement, rt rotator cuff repair, lt wrist plate, 4 bone marrow biopsies, heart cath 08/23/16, port inserted/later removed, PAIN CLINIC PROCEDURES Past Anesthesia/Blood Transfusion Reactions: Previous Problems w/ Anesthesia, Motion Sickness Additional Past Anesthesia/Blood Transfusion Reaction / Comment(s): woke up during surgery Smoking Status: Current some day smoker Additional Past Alcohol Use History / Comment(s): smoker 35 years-was 1 ppd- quit 2013 -still has has occasional cigarette - Past Family History Mother Family Medical History: No Reported History Medications and Allergies Home Medications Medication Instructions Recorded Confirmed Type Albuterol Inhaler [Ventolin Hfa 1 - 2 puff INHALATION DAILY PRN 07/12/16 History Inhaler] Aspirin [Adult Low Dose Aspirin EC] 81 mg PO DAILY 07/12/16 07/20/17 History Cholecalciferol [Vitamin D3] 1,000 unit PO DAILY 07/12/16 07/20/17 History DULoxetine HCL [Cymbalta] 30 mg PO DAILY 07/12/16 07/20/17 History Nitroglycerin 0.4 mg SL Q5M PRN 07/12/16 07/20/17 History Donepezil [Aricept] 10 mg PO DAILY 08/25/16 07/20/17 History Mometasone/Formoterol [Dulera 200 2 puff INHALATION BID 08/25/16 07/20/17 History Mcg/5 Mcg Inhaler] Atorvastatin [Lipitor] 40 mg PO HS 11/01/16 07/20/17 History Hydrocodone/Acetaminophen [[place] 1 tab PO Q6HR PRN 07/17/17 07/20/17 History 5-325] Cyclobenzaprine [Flexeril] 10 mg PO TID PRN 07/18/17 07/20/17 History Gabapentin [Neurontin] 200 mg PO Q8H 07/18/17 07/20/17 History Allergies Allergy/AdvReac Type Severity Reaction Status Date / Time venom-honey bee Allergy Anaphylaxis Verified 07/20/17 06:55 Surgical - Exam Vital Signs Temp Pulse Resp BP 97.8 F 67 16 149/86 07/20/17 07:05 07/20/17 07:05 07/20/17 07:05 07/20/17 07:05 - General well developed, no distress - Eyes PERRL - ENT normal pinna - Neck no masses - Respiratory normal expansion - Cardiovascular Rhythm: regular - Abdomen Mild left upper quadrant pain. Abdomen: soft Results - Labs Abnormal Lab Results - Last 24 Hours (Table) 07/19/17 Range/Units 13:01 Crossmatch See Detail Assessment and Plan Assessment: History of lymphoma, splenomegaly with left upper quadrant pain. We'll perform laparoscopic splenic. Patient aware the risks of surgery including injury to the stomach liver spleen. Is also a risk of conversion to open procedure.
[2017-07-20] MEDS ORDERED: LIDOCAINE 1% INJ 10MG/ML (20 ML MDV) ONE (07:57)
[2017-07-20] MEDS ORDERED: ROCURONIUM BROMIDE 10 MG/ML 10 ML VIAL IV ONE (07:57)
[2017-07-20] MEDS ORDERED: PROPOFOL 10 MG/ML 20 ML VIAL IV ONE (07:57)
[2017-07-20] MEDS ORDERED: NEOSTIGMINE 1 MG/ML 10 ML VIAL ONE (07:57)
[2017-07-20] MEDS ORDERED: fentaNYL (PF) 50 MCG/ML 2 ML AMP ONE (07:57)
[2017-07-20] MEDS ORDERED: GLYCOPYRROLATE 0.2 MG/ML 2 ML VIAL ONE (07:57)
[2017-07-20] MEDS ORDERED: MIDAZOLAM 2 MG/2 ML VIAL ONE (07:57)
[2017-07-20] MEDS ORDERED: SUCCINYLCHOLINE CHLORIDE 100 MG/5 ML SYR IV ONE (07:57)
[2017-07-20] MEDS ORDERED: BUPIVACAINE (PF) 0.25% 30 ML VIAL SQ ONE (08:35)
[2017-07-20] MEDS ORDERED: LACTATED RINGERS 1,000 ML IV ONE ×2 (09:11→10:21)
[2017-07-20] MEDS ORDERED: NALOXONE 0.4 MG/ML 1 ML VIAL IV PRN ×2 (10:21→10:24)
[2017-07-20] MEDS ORDERED: ACETAMINOPHEN TAB 325 MG TAB PO PRN (10:24)
[2017-07-20] MEDS ORDERED: METOCLOPRAMIDE 5 MG/ML 2 ML VIAL IVP PRN (10:24)
[2017-07-20] MEDS ORDERED: HYDROmorphone 0.5 MG/0.5 ML SYRINGE IVP PRN (10:24)
[2017-07-20] MEDS: MORPHINE SULFATE 4 MG/ML SYRINGE IV PRN ×4 (10:30→10:52)
--- NOTE | 2017-07-20 11:05 | P.OP ---
Date of Procedure: 07/20/17 Preoperative Diagnosis: Upper quadrant pain Splenomegaly Postoperative Diagnosis: Left upper quadrant pain Splenomegaly Procedure(s) Performed: Laparoscopic splenectomy Anesthesia: NITISH Surgeon: Preet Horne Estimated Blood Loss (ml): 200 Pathology: other (Spleen) Condition: stable Disposition: PACU Operative Findings: Massive spleen measuring 26 x 16 x 15 cm Description of Procedure: The patient was placed on the operating table in the supine position. The patient received general anesthesia. And was placed in dorsal lithotomy position. The patient was prepped and draped in the usual sterile fashion. The skin incision sites were anesthetized with 1% local Xylocaine. The skin was incised in the left periumbilical area and then using a blade less 5 mm trocar under direct visualization panel cavity was entered. After adequate insufflation the laparoscope was then placed into the peritoneal cavity. Next a 5 mm trochars placed in the right epigastric position. Another 5 millimeter trocar the right lateral position. Another 5 millimeter trocar in the left lateral position a 5 mm trocar is placed in the left epigastric position. And then the initial 8 mm trocar was exchanged for a 10 mm trocar. A 15 mm trocar was placed above the umbilicus. The left lateral lobe liver was retracted. Spleen was visualized. The spleen was quite large. Using the Harmonic scissors the short gastric vessels were divided. The splenic artery was visualized. Systolic artery was dissected. And then using a 2-0 Ethibond suture and the thymic device the splenic artery was ligated. The splenic artery was then divided using the powered echelon stapler with the white cartridge. An seam guard material. The spleen wasn't visualized. The spleen appeared to become ischemic. Several short gastric vessels at the superior pole of the spleen were then divided. The splenocolic attachments were divided using Harmonic scissors. And then the splenic hilum was visualized. There was a large vein in the hilum visualized. This was transected with the powered echelon stapler and the right cartridge. The hilum was then further transected using the powered echelon stapler and the au cartridge. 3 staple loads were used to transect the hilum. At this point the spleen was fully mobile. The spleen had some backbleeding from it. At this point the spleen was visualized and it was too large to bring through a trocar site. It was quite massive. An upper midline incision was made. And the spleen was then brought out through the midline incision. The spleen measured 26 x 16 x 14 cm. The operative field was inspected. There is no bleeding seen. The abdomen was irrigated. There is no bleeding seen. The trochars had been withdrawn. The fascia was closed with looped #1 PDS suture. Skin was closed with lalo. Patient top she will was sent to recovery in stable condition.
[2017-07-20] MEDS ORDERED: HYDROmorphone 0.5 MG/0.5 ML SYRINGE IVP ONE (11:07)
[2017-07-20] MEDS: KETOROLAC 30 MG/ML 1 ML VIAL IVP SCH ×3 (12:33→23:09)
[2017-07-20] MEDS: HYDROcodone/APAP 5-325MG 1 EACH TAB PO PRN ×2 (13:05→19:02)
[2017-07-20 14:18] LABS: HCT 43.1 % (39.0-53.0); HGB 14.1 gm/dL (13.0-17.5); MCH 28.9 pg (25.0-35.0); MCHC 32.6 g/dL (31.0-37.0); MCV 88.8 fL (80.0-100.0); Mean Platelet Volume 6.9; RBC 4.86 m/uL (4.30-5.90); RDW 13.7 % (11.5-15.5); WBC 15.3 k/uL (3.8-10.6)
[2017-07-20 14:20] LABS: Platelet Count 132 k/uL (150-450)
--- NOTE | 2017-07-20 15:36 | P.CONS ---
History of Present Illness - Reason for Consult Consult date: 07/20/17 The medical management Requesting physician: Preet Horne - Chief Complaint Consulted for medical management - History of Present Illness The patient is a 57-year-old male with a past medical history of COPD , dementia, chronic lower back pain secondary to degenerative disc disease who is admitted under general surgery Dr. Horne's service and is postop laparoscopic splenectomy secondary to history of splenomegaly. The patient is doing well other than for some moderate abdominal pain, he denies any chest pain or shortness of breath or cough. He's tolerating clear liquids nicely. The patient does have a remote history of lymphoma in 2010 with recurrence in 2016 and reports to being cancer free since this time, per patient's he had a PET scan earlier this year with no findings concerning for recurrence at that time. The patient is currently on morphine [place] Toradol, and Tylenol per Dr. Horne's orders, he denies passing gas or any bowel movements or any nausea at this time. Review of Systems 14 point ROS Negative except for HPI Past Medical History Past Medical History: Cancer, Chest Pain / Angina, COPD, Dementia, Osteoarthritis (OA) Additional Past Medical History / Comment(s): all over body pain, rt hip and leg , neck and back pain, enlarged spleen, nonhodgkins lymphoma x2- 2010, 2016. , SKIN CANCER. History of Any Multi-Drug Resistant Organisms: MRSA Year Discovered:: 2012 MDRO Source:: ear Past Surgical History: Heart Catheterization, Hernia Repair, Joint Replacement, Orthopedic Surgery Additional Past Surgical History / Comment(s): rt hip replacement, rt rotator cuff repair, lt wrist plate, 4 bone marrow biopsies, heart cath 08/23/16, port inserted/later removed, PAIN CLINIC PROCEDURES Past Anesthesia/Blood Transfusion Reactions: Previous Problems w/ Anesthesia, Motion Sickness Additional Past Anesthesia/Blood Transfusion Reaction / Comm: woke up during surgery Past Psychological History: Depression Smoking Status: Current some day smoker Past Alcohol Use History: Occasional Additional Past Alcohol Use History / Comment(s): smoker 35 years-was 1 ppd- quit 2013 -still has has occasional cigarette Past Drug Use History: None Reported Additional Drug Use History / Comment(s): . - Past Family History Mother Family Medical History: No Reported History Medications and Allergies Home Medications Medication Instructions Recorded Confirmed Type Albuterol Inhaler [Ventolin Hfa 1 - 2 puff INHALATION DAILY PRN 07/12/16 History Inhaler] Aspirin [Adult Low Dose Aspirin EC] 81 mg PO DAILY 07/12/16 07/20/17 History Cholecalciferol [Vitamin D3] 1,000 unit PO DAILY 07/12/16 07/20/17 History DULoxetine HCL [Cymbalta] 30 mg PO DAILY 07/12/16 07/20/17 History Nitroglycerin 0.4 mg SL Q5M PRN 07/12/16 07/20/17 History Donepezil [Aricept] 10 mg PO DAILY 08/25/16 07/20/17 History Mometasone/Formoterol [Dulera 200 2 puff INHALATION BID 08/25/16 07/20/17 History Mcg/5 Mcg Inhaler] Atorvastatin [Lipitor] 40 mg PO HS 11/01/16 07/20/17 History Hydrocodone/Acetaminophen [[place] 1 tab PO Q6HR PRN 07/17/17 07/20/17 History 5-325] Cyclobenzaprine [Flexeril] 10 mg PO TID PRN 07/18/17 07/20/17 History Gabapentin [Neurontin] 200 mg PO Q8H 07/18/17 07/20/17 History Allergies Allergy/AdvReac Type Severity Reaction Status Date / Time venom-honey bee Allergy Anaphylaxis Verified 07/20/17 06:55 Physical Exam Vitals: Vital Signs Temp Pulse Resp BP Pulse Ox 07/20/17 14:00 106 H 130/93 96 07/20/17 13:45 109 H 145/91 96 07/20/17 13:30 98 125/84 07/20/17 13:15 87 125/68 96 07/20/17 13:00 105 H 138/88 95 07/20/17 12:45 99 133/83 07/20/17 12:30 105 H 133/91 94 L 07/20/17 12:15 104 H 134/89 96 07/20/17 11:30 63 16 142/77 98 07/20/17 11:15 62 16 154/80 98 07/20/17 11:00 57 L 16 157/77 100 07/20/17 10:45 62 16 155/83 100 07/20/17 10:30 63 16 177/83 100 07/20/17 10:23 97.5 F L 72 16 134/81 100 07/20/17 07:05 97.8 F 67 16 149/86 Intake and Output 07/20/17 07/20/17 07/20/17 06:59 14:59 22:59 Intake Total 2175 Output Total 300 Balance 1875 Intake: IV 2049 Intake, IV Titration 125 Amount Lactated Ringers 1,000 ml 125 @ 125 mls/hr IV .Q8H ONE Rx#:[id number] Oral 0 Output: Estimated Blood Loss 300 Other: Weight 104.326 kg Patient Weight 07/21/17 06:59 Weight 104.326 kg Constitutional: No acute distress, conversant, pleasant Eyes: Anicteric sclerae, moist conjunctiva, no lid-lag, PERRLA ENMT: NC/AT,Oropharynx clear, no erythema, exudates Neck:Supple, FROM, no masses, or JVD, No carotid bruits; No thyromegaly Lungs: Clear to auscultation, Clear to percussion, Normal respiratory effort, no accessory muscle use Cardiovascular: Heart regular in rate and rhythm, No murmurs, gallops, or rubs no peripheral edema Abdominal: Moderately tender to deep palpation in the mid and right abdomen, nom distended, no guarding, no rebound or rigidity, Normoactive bowel sounds No hepatomegaly, No splenomegaly, No palpable mass No abdominal wall hernia noted Skin: Normal temperature, tone, texture, turgor, No induration No subcutaneous nodules, No rash, lesions, No ulcers Extremities:No digital cyanosis No clubbing, Pedal pulses intact and symmetrical Radial pulses intact and symmetrical Normal gait and station, No calf tenderness Psychiatric: Alert and oriented to person, place and time, Appropriate affect Intact judgement Neuro: Muscles Strength 5/5 in all 4 extremities, Sensation to light touch grossly present throughout, Cranial nerves II-XII grossly intact. No focal sensory deficits Results CBC & Chem 7: 07/20/17 13:26 Labs: Abnormal Lab Results - Last 24 Hours (Table) 07/19/17 07/20/17 Range/Units 13:01 13:26 WBC 15.3 H (3.8-10.6) k/uL Plt Count 132 L D (150-450) k/uL Crossmatch See Detail Assessment and Plan (1) Splenomegaly Current Visit: Yes Status: Acute Code(s): R16.1 - SPLENOMEGALY, NOT ELSEWHERE CLASSIFIED SNOMED Code(s): 63832972 (2) COPD (chronic obstructive pulmonary disease) Current Visit: Yes Status: Acute Code(s): J44.9 - CHRONIC OBSTRUCTIVE PULMONARY DISEASE, UNSPECIFIED SNOMED Code(s): 22839621 (3) DDD (degenerative disc disease), lumbar Current Visit: Yes Status: Acute Code(s): M51.36 - OTHER INTERVERTEBRAL DISC DEGENERATION, LUMBAR REGION SNOMED Code(s): 39682994 (4) Thrombocytopenia Current Visit: Yes Status: Acute Code(s): D69.6 - THROMBOCYTOPENIA, UNSPECIFIED SNOMED Code(s): 301565181 Plan: The patient is admitted to the general surgery team under Dr. Nguyen. We'll defer pain management to the primary team, agree with perioperative antibiotics due to increased risk for sepsis. The patient will require vaccination again infectious encapsulated bacteria such as Streptococcus pneumoniae, neisseria meningitidis and Haemophilus influenzae. The patient appears to have chronic thrombocytopenia related to his splenomegaly. We'll continue to follow this patient with you. Appreciate this consult
[2017-07-20] MEDS: MORPHINE SULFATE 4 MG/ML SYRINGE IVP PRN ×2 (15:56→21:06)
[2017-07-20] MEDS: DOCUSATE 100 MG CAP PO SCH (21:06)
[2017-07-21] MEDS: MORPHINE SULFATE 4 MG/ML SYRINGE IVP PRN ×3 (01:13→17:44)
[2017-07-21] MEDS: HYDROcodone/APAP 5-325MG 1 EACH TAB PO PRN ×3 (02:18→15:59)
[2017-07-21] MEDS: KETOROLAC 30 MG/ML 1 ML VIAL IVP SCH ×3 (05:00→18:10)
[2017-07-21 07:11] LABS: Basophils % (A) 0 %; Eosinophils # (A) 0.1 k/uL (0-0.7); Eosinophils % (A) 1 %; HCT 37.3 % (39.0-53.0); HGB 12.3 gm/dL (13.0-17.5); Lymphocytes # (A) 1.6 k/uL (1.0-4.8); Lymphocytes % (A) 12 %; MCH 28.7 pg (25.0-35.0); MCV 87.1 fL (80.0-100.0); Mean Platelet Volume 7.6; Monocytes # (A) 1.5 k/uL (0-1.0); Monocytes % (A) 11 %; Neutrophils % (A) 73 %; Platelet Count 132 k/uL (150-450); RBC 4.28 m/uL (4.30-5.90); RDW 13.9 % (11.5-15.5); WBC 13.6 k/uL (3.8-10.6)
[2017-07-21] MEDS: PANTOPRAZOLE 40 MG/10 ML VIAL IV SCH (07:26)
[2017-07-21] MEDS: DOCUSATE 100 MG CAP PO SCH ×2 (07:26→21:57)
[2017-07-21 07:41] LABS: ALT 87 U/L (21-72); AST 58 U/L (17-59); Albumin 3.6 g/dL (3.5-5.0); Alkaline Phosphatase 68 U/L (38-126); Anion Gap 7 mmol/L; Blood Urea Nitrogen 14 mg/dL (9-20); Calcium 9.3 mg/dL (8.4-10.2); Carbon Dioxide 30 mmol/L (22-30); Chloride 100 mmol/L (98-107); Glucose 118 mg/dL (74-99); Potassium 4.4 mmol/L (3.5-5.1); Sodium 137 mmol/L (137-145); Total Bilirubin 1.3 mg/dL (0.2-1.3); Total Protein 5.8 g/dL (6.3-8.2)
--- NOTE | 2017-07-21 09:56 | P.PN ---
Subjective Progress Note Date: 07/21/17 57-year-old male seen and examined. Currently sitting up in a chair. Pleasant cooperative oriented to self and place no nausea no vomiting surgical incision sites dry Patient is postop July 20 laparoscopic splenectomy for left upper quadrant pain. Objective - Vital Signs Vital signs: Vital Signs Temp 99 F 07/21/17 07:21 Pulse 78 07/21/17 07:21 Resp 14 07/21/17 07:21 BP 122/77 07/21/17 07:21 Pulse Ox 95 07/21/17 07:21 Intake & Output 07/20/17 07/21/17 07/21/17 18:59 06:59 18:59 Intake Total 2175 1058 600 Output Total 300 500 Balance 1875 558 600 Weight 104.326 kg Intake: IV 0 Intake, IV Titration 125 220 Amount Lactated Ringers 1,000 ml 125 @ 125 mls/hr IV .Q8H ONE Rx#:[id number] Lactated Ringers 1,000 ml 220 @ 20 mls/hr IV .Q24H CRISTOBAL Rx#:[id number] Oral 0 838 600 Output: Urine 500 Estimated Blood Loss 300 Other: Voiding Method Urinal # Voids 1 1 - Exam Physical exam 57-year-old male sitting up in a chair pleasant cooperative oriented to self and place only flat affect Lungs diminished at the bases cognitively cannot grasp the use of the incentive spirometer no cough noted Heart S1-S2 audible regular Abdomen soft no facial grimacing with palpitation to the abdominal wall surgical dressing sites dry hypoactive bowel tones using urinal urinating no stool tolerating clear liquid Extremities no edema noted - Labs CBC & Chem 7: 07/21/17 06:50 07/21/17 06:50 Labs: Abnormal Lab Results - Last 24 Hours (Table) 07/19/17 07/20/17 07/21/17 Range/Units 13:01 13:26 06:50 WBC 15.3 H 13.6 H (3.8-10.6) k/uL RBC 4.28 L (4.30-5.90) m/uL Hgb 12.3 L (13.0-17.5) gm/dL Hct 37.3 L (39.0-53.0) % Plt Count 132 L D 132 L (150-450) k/uL Neutrophils # 10.0 H (1.3-7.7) k/uL Monocytes # 1.5 H (0-1.0) k/uL Glucose (74-99) mg/dL ALT (21-72) U/L Total Protein (6.3-8.2) g/dL Crossmatch See Detail 07/21/17 Range/Units 06:50 WBC (3.8-10.6) k/uL RBC (4.30-5.90) m/uL Hgb (13.0-17.5) gm/dL Hct (39.0-53.0) % Plt Count (150-450) k/uL Neutrophils # (1.3-7.7) k/uL Monocytes # (0-1.0) k/uL Glucose 118 H (74-99) mg/dL ALT 87 H (21-72) U/L Total Protein 5.8 L (6.3-8.2) g/dL Crossmatch Assessment and Plan Assessment: Impression Present on admission left upper quadrant pain with a CAT scan abdomen and pelvis showing splenomegaly Postop July 20 labs A splenectomy History lymphoma non-Hodgkin times to 2015 the PET scan showing no recurrent Dementia cognitive impairment Chronic pain with narcotic dependency Pancytopenia Plan Encourage use of incentive spirometer Continue postop surgical care Pain control Fall precautions Home meds as appropriate DVT and GI prophylaxis Further recommendations pending PT OT eval increase activity The above impression and plan of care have been discussed and directed by signing physician. Debbie Hdez nurse practitioner acting as scribe for signing physician.
[2017-07-21] MEDS: ENOXAPARIN 40 MG/0.4 ML SYRINGE SQ SCH (09:57)
--- NOTE | 2017-07-21 12:42 | P.PN ---
Subjective Progress Note Date: 07/21/17 Patient does have underlying dementia and does appear a bit confused this morning, otherwise no acute events overnight Objective - Vital Signs Vital signs: Vital Signs Temp 99 F 07/21/17 07:21 Pulse 78 07/21/17 07:21 Resp 14 07/21/17 07:21 BP 122/77 07/21/17 07:21 Pulse Ox 95 07/21/17 07:21 Intake & Output 07/20/17 07/21/17 07/21/17 18:59 06:59 18:59 Intake Total 2175 1058 600 Output Total 300 500 Balance 1875 558 600 Weight 104.326 kg Intake: IV 0 Intake, IV Titration 125 220 Amount Lactated Ringers 1,000 ml 125 @ 125 mls/hr IV .Q8H ONE Rx#:[id number] Lactated Ringers 1,000 ml 220 @ 20 mls/hr IV .Q24H CRISTOBAL Rx#:[id number] Oral 0 838 600 Output: Urine 500 Estimated Blood Loss 300 Other: Voiding Method Urinal # Voids 1 1 - Exam Constitutional: No acute distress, conversant, pleasant Eyes: Anicteric sclerae, moist conjunctiva, no lid-lag, PERRLA ENMT: NC/AT,Oropharynx clear, no erythema, exudates Neck:Supple, FROM, no masses, or JVD, No carotid bruits; No thyromegaly Lungs: Clear to auscultation, Clear to percussion, Normal respiratory effort, no accessory muscle use Cardiovascular: Heart regular in rate and rhythm, No murmurs, gallops, or rubs no peripheral edema Abdominal: Tender to palpation in his abdomen, nom distended, no guarding, no rebound or rigidity, Normoactive bowel sounds No hepatomegaly, No splenomegaly , No palpable mass No abdominal wall hernia noted Skin: Normal temperature, tone, texture, turgor, No induration No subcutaneous nodules, No rash, lesions, No ulcers Extremities:No digital cyanosis No clubbing, Pedal pulses intact and symmetrical Radial pulses intact and symmetrical Normal gait and station, No calf tenderness Psychiatric: Awake and alert, Appropriate affect Intact judgement Neuro: Muscles Strength 5/5 in all 4 extremities, Sensation to light touch grossly present throughout, Cranial nerves II-XII grossly intact. No focal sensory deficits - Labs CBC & Chem 7: 07/21/17 06:50 03/02/18 06:50 Labs: Abnormal Lab Results - Last 24 Hours (Table) 07/19/17 07/20/17 07/21/17 Range/Units 13:01 13:26 06:50 WBC 15.3 H 13.6 H (3.8-10.6) k/uL RBC 4.28 L (4.30-5.90) m/uL Hgb 12.3 L (13.0-17.5) gm/dL Hct 37.3 L (39.0-53.0) % Plt Count 132 L D 132 L (150-450) k/uL Neutrophils # 10.0 H (1.3-7.7) k/uL Monocytes # 1.5 H (0-1.0) k/uL Glucose (74-99) mg/dL ALT (21-72) U/L Total Protein (6.3-8.2) g/dL Crossmatch See Detail 07/21/17 Range/Units 06:50 WBC (3.8-10.6) k/uL RBC (4.30-5.90) m/uL Hgb (13.0-17.5) gm/dL Hct (39.0-53.0) % Plt Count (150-450) k/uL Neutrophils # (1.3-7.7) k/uL Monocytes # (0-1.0) k/uL Glucose 118 H (74-99) mg/dL ALT 87 H (21-72) U/L Total Protein 5.8 L (6.3-8.2) g/dL Crossmatch Assessment and Plan (1) Splenomegaly Narrative/Plan: * Pathology from the patient's splenectomy Pending * We'll defer to primary team regarding pain management * Patient will need postsplenectomy vaccinations to be done, will send a referral for a follow-up appointment through the ID office of Dr. Mcmahon Current Visit: Yes Status: Acute Code(s): R16.1 - SPLENOMEGALY, NOT ELSEWHERE CLASSIFIED SNOMED Code(s): 03519505 (2) COPD (chronic obstructive pulmonary disease) Narrative/Plan: * Stable without any acute exacerbation Current Visit: Yes Status: Acute Code(s): J44.9 - CHRONIC OBSTRUCTIVE PULMONARY DISEASE, UNSPECIFIED SNOMED Code(s): 47112738 (3) DDD (degenerative disc disease), lumbar Narrative/Plan: * A stable patient denying any lower back pain at present Current Visit: Yes Status: Acute Code(s): M51.36 - OTHER INTERVERTEBRAL DISC DEGENERATION, LUMBAR REGION SNOMED Code(s): 62156144 (4) Thrombocytopenia Narrative/Plan: * Chronic secondary to underlying splenomegaly now post splenectomy Current Visit: Yes Status: Acute Code(s): D69.6 - THROMBOCYTOPENIA, UNSPECIFIED SNOMED Code(s): 779816905 (5) Dementia Narrative/Plan: * Patient does appear slightly confused does have underlying dementia and has been receiving narcotics postop Current Visit: Yes Status: Acute Code(s): F03.90 - UNSPECIFIED DEMENTIA WITHOUT BEHAVIORAL DISTURBANCE SNOMED Code(s): 09928933 Plan: * We'll continue to follow this patient with you
[2017-07-22] MEDS: KETOROLAC 30 MG/ML 1 ML VIAL IVP SCH ×2 (00:57→05:34)
[2017-07-22 07:31] LABS: HCT 39.3 % (39.0-53.0); HGB 12.7 gm/dL (13.0-17.5); MCH 28.7 pg (25.0-35.0); MCHC 32.2 g/dL (31.0-37.0); MCV 89.2 fL (80.0-100.0); Platelet Count 184 k/uL (150-450); RBC 4.41 m/uL (4.30-5.90); RDW 13.8 % (11.5-15.5); WBC 16.1 k/uL (3.8-10.6)
[2017-07-22] MEDS: HYDROcodone/APAP 5-325MG 1 EACH TAB PO PRN ×2 (07:44→14:08)
[2017-07-22 07:45] LABS: ALT 64 U/L (21-72); AST 44 U/L (17-59); Albumin 3.7 g/dL (3.5-5.0); Alkaline Phosphatase 76 U/L (38-126); Anion Gap 9 mmol/L; Blood Urea Nitrogen 12 mg/dL (9-20); Calcium 9.9 mg/dL (8.4-10.2); Carbon Dioxide 32 mmol/L (22-30); Chloride 98 mmol/L (98-107); Glucose 100 mg/dL (74-99); Potassium 4.3 mmol/L (3.5-5.1); Sodium 139 mmol/L (137-145); Total Bilirubin 0.9 mg/dL (0.2-1.3); Total Protein 6.2 g/dL (6.3-8.2)
[2017-07-22 09:04] LABS: Eosinophils # (M) 0.16 k/uL (0-0.7); Lymphocytes # (M) 2.25 k/uL (1.0-4.8); Monocytes # (M) 2.09 k/uL (0-1.0); Neutrophils # (M) 11.59 k/uL (1.3-7.7); Neutrophils % (M) 72 %; Nucleated Red Blood Cells 0 /100 WBC (0-0); Total Cells Counted 100
[2017-07-22] MEDS: PANTOPRAZOLE 40 MG/10 ML VIAL IV SCH (09:05)
[2017-07-22] MEDS: DOCUSATE 100 MG CAP PO SCH (09:05)
[2017-07-22] MEDS: ENOXAPARIN 40 MG/0.4 ML SYRINGE SQ SCH (09:05)
--- NOTE | 2017-07-22 10:13 | P.PN ---
Subjective Patient is a 57-year-old white male status post laparoscopic-assisted splenectomy on 07/20/2017. At this time the patient is doing well but has not yet had a bowel movement. He has passed gas. His hemoglobin is stable at 12.7 white count 16.1. His platelets are 184. Objective - Vital Signs Vital signs: Vital Signs Temp 97.1 F L 07/22/17 07:14 Pulse 73 07/22/17 07:14 Resp 16 07/22/17 07:14 BP 145/91 07/22/17 09:27 Pulse Ox 95 07/22/17 07:14 Intake & Output 07/21/17 07/22/17 07/22/17 18:59 06:59 18:59 Intake Total 1200 2296 360 Balance 1200 2296 360 Intake: Intake, IV Titration 796 Amount Lactated Ringers 1,000 ml 796 @ 20 mls/hr IV .Q24H CRISTOBAL Rx#:[id number] Oral 1200 1500 360 Other: Voiding Method Urinal # Voids 2 1 - Constitutional General appearance: Present: obese - Respiratory Details: Mildly decreased breath sounds bilaterally at the bases - Cardiovascular Rhythm: regular Heart sounds: normal: S1, S2 - Gastrointestinal Gastrointestinal Comment(s): Minimal drainage on the midline abdominal wound dressing otherwise dressings clean and dry General gastrointestinal: Present: distended, normal bowel sounds, soft - Psychiatric Psychiatric: Present: A&O x's 3, appropriate affect, intact judgment & insight - Labs CBC & Chem 7: 07/22/17 06:38 07/22/17 06:38 Labs: Abnormal Lab Results - Last 24 Hours (Table) 07/22/17 07/22/17 Range/Units 06:38 06:38 WBC 16.1 H (3.8-10.6) k/uL Hgb 12.7 L (13.0-17.5) gm/dL Neutrophils # (Manual) 11.59 H (1.3-7.7) k/uL Monocytes # (Manual) 2.09 H (0-1.0) k/uL Carbon Dioxide 32 H (22-30) mmol/L Glucose 100 H (74-99) mg/dL Total Protein 6.2 L (6.3-8.2) g/dL Assessment and Plan Plan: Impression/plan: 1. Postop day 2 from a lap assisted splenectomy 2. Abdomen mildly distended Plan: 1. Advancing diet as patient tolerates 2. Probable discharge home in the near future
--- NOTE | 2017-07-22 16:31 | P.PN ---
Subjective Progress Note Date: 07/22/17 Patient doing much better today but still has not passed gas, his mentation has improved significantly since yesterday. otherwise no acute events overnight Objective - Vital Signs Vital signs: Vital Signs Temp 98.3 F 07/22/17 15:00 Pulse 73 07/22/17 15:00 Resp 20 07/22/17 15:00 BP 144/93 07/22/17 15:00 Pulse Ox 94 L 07/22/17 15:00 Intake & Output 07/21/17 07/22/17 07/22/17 18:59 06:59 18:59 Intake Total 1200 2296 600 Balance 1200 2296 600 Intake: Intake, IV Titration 796 Amount Lactated Ringers 1,000 ml 796 @ 20 mls/hr IV .Q24H CRISTOBAL Rx#:[id number] Oral 1200 1500 600 Other: Voiding Method Urinal # Voids 2 1 2 # Bowel Movements 1 - Exam Constitutional: No acute distress, conversant, pleasant Eyes: Anicteric sclerae, moist conjunctiva, no lid-lag, PERRLA ENMT: NC/AT,Oropharynx clear, no erythema, exudates Neck:Supple, FROM, no masses, or JVD, No carotid bruits; No thyromegaly Lungs: Clear to auscultation, Clear to percussion, Normal respiratory effort, no accessory muscle use Cardiovascular: Heart regular in rate and rhythm, No murmurs, gallops, or rubs no peripheral edema Abdominal: Tender to palpation in his abdomen, nom distended, no guarding, no rebound or rigidity, Normoactive bowel sounds No hepatomegaly, No splenomegaly , No palpable mass No abdominal wall hernia noted Skin: Normal temperature, tone, texture, turgor, No induration No subcutaneous nodules, No rash, lesions, No ulcers Extremities:No digital cyanosis No clubbing, Pedal pulses intact and symmetrical Radial pulses intact and symmetrical Normal gait and station, No calf tenderness Psychiatric: Awake and alert, Appropriate affect Intact judgement Neuro: Muscles Strength 5/5 in all 4 extremities, Sensation to light touch grossly present throughout, Cranial nerves II-XII grossly intact. No focal sensory deficits - Labs CBC & Chem 7: 07/22/17 06:38 07/22/17 06:38 Labs: Abnormal Lab Results - Last 24 Hours (Table) 07/22/17 07/22/17 Range/Units 06:38 06:38 WBC 16.1 H (3.8-10.6) k/uL Hgb 12.7 L (13.0-17.5) gm/dL Neutrophils # (Manual) 11.59 H (1.3-7.7) k/uL Monocytes # (Manual) 2.09 H (0-1.0) k/uL Carbon Dioxide 32 H (22-30) mmol/L Glucose 100 H (74-99) mg/dL Total Protein 6.2 L (6.3-8.2) g/dL Assessment and Plan (1) Splenomegaly Narrative/Plan: * Pathology from the patient's splenectomy Pending * We'll defer to primary team regarding pain management * Patient will need postsplenectomy vaccinations to be done, will send a referral for a follow-up appointment through the ID office of Dr. Mcmahon Current Visit: Yes Status: Acute Code(s): R16.1 - SPLENOMEGALY, NOT ELSEWHERE CLASSIFIED SNOMED Code(s): 00875961 (2) COPD (chronic obstructive pulmonary disease) Narrative/Plan: * Stable without any acute exacerbation Current Visit: Yes Status: Acute Code(s): J44.9 - CHRONIC OBSTRUCTIVE PULMONARY DISEASE, UNSPECIFIED SNOMED Code(s): 52002078 (3) DDD (degenerative disc disease), lumbar Narrative/Plan: * A stable patient denying any lower back pain at present Current Visit: Yes Status: Acute Code(s): M51.36 - OTHER INTERVERTEBRAL DISC DEGENERATION, LUMBAR REGION SNOMED Code(s): 17654581 (4) Thrombocytopenia Narrative/Plan: * Chronic secondary to underlying splenomegaly now post splenectomy Current Visit: Yes Status: Acute Code(s): D69.6 - THROMBOCYTOPENIA, UNSPECIFIED SNOMED Code(s): 912216683 (5) Dementia Current Visit: Yes Status: Acute Code(s): F03.90 - UNSPECIFIED DEMENTIA WITHOUT BEHAVIORAL DISTURBANCE SNOMED Code(s): 19482334 Plan: Patient is medically stable we'll sign off, likely be discharged home tomorrow
--- NOTE | 2017-07-22 16:42 | CONS ---
CONSULTATION DATE OF SERVICE: 07/22/2017 REASON FOR CONSULTATION: 1. Leukocytosis postop and need for antibiotic therapy. 2. Postsplenectomy vaccination. HISTORY OF PRESENT ILLNESS: The patient is a 57-year-old male with a past medical history significant for lymphoma, initially diagnosed anteriorly in 2010 with recurrence in 2016 for the patient has finished his chemotherapy and apparently the patient did have a PET scan done earlier this year with no finding concerning for recurrence. Patient noticed to have significant splenomegaly and the patient has been admitted to the hospital electively on 07/20/2017 and is status post laparoscopic splenectomy without any complication. Post surgery, the patient has been in the hospital being evaluated and treated by [facility]. Patient remains to be afebrile, except some low-grade fever of 99 on 07/21; however, he is 97.1 this morning. The patient who did have a white count of 15.3 on the first down to 13.6, and is up to 15.1 today with concern for possible infection. Infectious Disease was consulted for further recommendation regarding antibiotic therapy as well as recommendation regarding post splenectomy vaccination. Patient currently denies having any fever or chills himself. He denies having any headache. No URI symptoms. No chest pain. No shortness of breath, cough. He did have incentive spirometry, some postop abdominal pain, though controlled with pain medication. No nausea, vomiting. No diarrhea. The patient had no bowel movement since surgery and no urinary symptoms except some frequency. REVIEW OF SYSTEMS: CONSTITUTIONAL: Positive for weakness, no high-grade fever. EYES: No complaint. ENT: No complaint. RESPIRATORY: No complaint. CARDIOVASCULAR: No complaint. GENITOURINARY: No complaint. GASTROINTESTINAL: As per HPI. MUSCULOSKELETAL: No complaint. INTEGUMENTARY: No complaint. PSYCHOLOGICAL: No complaint. ENDOCRINE: No complaint. NEUROLOGICAL: No complaint. PAST MEDICAL HISTORY: Significant for COPD, osteoarthritis, history of lymphoma non-Hodgkin, skin cancer, and MRSA infection of the ear. PAST SURGICAL HISTORY: Heart catheterization, hernia repair, right hip replacement, right rotator cuff repair, right wrist plate, bone marrow biopsy, heart catheterization, MediPort placement removal. PAST PSYCHOLOGICAL HISTORY: Positive for depression. SOCIAL HISTORY: The patient currently everyday smoker, about 1/2 pack smoking. Occasionally drinks, no drug use. FAMILY HISTORY: No pertinent findings noticed. ALLERGIES: No known drug allergies. MEDICATIONS: The patient is currently on Tylenol, [place], Colace, Lovenox, lactated Ringer, Reglan, Narcan, and Protonix. PHYSICAL EXAMINATION: Blood pressure is 158/90 with a pulse of 73, temperature of 97.1. He is 95% on room air. General description is a middle-aged male, up in the chair in no distress. No tachypnea or accessory muscle for respiration use. HEENT EXAMINATION: Shows no pallor or scleral icterus. Oral mucosa is moist. No pharyngeal erythema or thrush. NECK: Trachea central, no thyromegaly. LUNGS: Unlabored breathing, decreased breath sounds at the bases. No wheeze or crackle. HEART: S1, S2. Regular rate and rhythm. ABDOMEN: Soft, minimally distended, mildly tender, no guarding, rigidity, no organomegaly. EXTREMITIES: No edema of the feet. SKIN EXAMINATION: No rash or mass palpable. NEUROLOGICAL: Patient is awake, alert, oriented x3. Mood and affect normal. LABS: Hemoglobin is 12.4, white count of 16.1, BUN of 12, creatinine 0.90. DIAGNOSTIC IMPRESSION AND PLAN: 1. Patient with a postoperative leukocytosis, more likely his post splenectomy state. Clinical suspicion is low for underlying infection and patient did not have any high-grade fever, no symptoms or concern for the same, with the low-grade fever of 99 could be related to atelectasis rather than pneumonia. 2. Patient is post splenectomy. He will need vaccination with meningococcal, pneumococcal and Haemophilus influenzae B day 14 of his surgery. PLAN: 1. Patient has been advised to continue with incentive spirometry every hour on the hour while awake at least 10 times to prevent development of pneumonia. 2. We will monitor very closely if any new fever, higher than 100.4. Patient will be cultured before starting him on antibiotics. 3. As for his post splenectomy vaccination, he should get on day 14 post splenectomy, will include Menactra 2 doses 2 months apart, pneumococcal PCV 13, followed by PPSV23 two months later and Haemophilus influenzae B vaccine x2 two months apart. This was explained to the RN as well as the patient's . All their questions and concerns were answered. MMODL / IJN: [id number] /
[2017-07-22] MEDS ORDERED: BISACODYL 10 MG SUPP RECTAL STA (18:33)
--- NOTE | 2017-07-22 19:18 | XR ---
EXAMINATION TYPE: XR abdomen complete w decub DATE OF EXAM: 07/22/2017 COMPARISON: NONE INDICATION: Abdomen pain TECHNIQUE: Abdomen is examined in supine and upright views and a left lateral decubitus view. FINDINGS: Surgical skin lalo are present in the midline. Small amount of pneumoperitoneum is under the right diaphragm which can be postsurgical. Correlate with the timing of the surgery. Colonic bowel gas is present. Nonspecific small bowel gas is present. No mass effect is evident. Psoas margins are normal. Surgical sutures in left upper quadrant. Suspicious differential air-fluid levels are not evident. IMPRESSION: 1. Small pneumoperitoneum which can be postsurgical in nature. Correlate with the timing of surgery. 2. Nonspecific abdomen.
[2017-07-22] MEDS: MORPHINE SULFATE 4 MG/ML SYRINGE IVP PRN (19:53)
[2017-07-23] MEDS: LACTATED RINGERS 1,000 ML IV SCH (03:46)
[2017-07-23] MEDS: DOCUSATE 100 MG CAP PO SCH ×2 (03:46→08:34)
[2017-07-23] MEDS: HYDROcodone/APAP 5-325MG 1 EACH TAB PO PRN ×2 (07:32→14:08)
[2017-07-23] MEDS: ENOXAPARIN 40 MG/0.4 ML SYRINGE SQ SCH (08:33)
[2017-07-23] MEDS: PANTOPRAZOLE 40 MG/10 ML VIAL IV SCH (08:33)
[2017-07-23 08:45] VITALS: BP 157/100; PULSE 82; RESP 16; TEMP 98.3
--- NOTE | 2017-07-23 11:50 | P.PN ---
Subjective Patient is a 57-year-old white male status post laparoscopic-assisted splenectomy on 07/20/2017. At this time the patient is doing well and has had a small bowel movement. He has passed gas. He had abdominal x-rays performed yesterday which were felt to be nonspecific. Objective - Vital Signs Vital signs: Vital Signs Temp 98.3 F 07/23/17 08:44 Pulse 82 07/23/17 08:44 Resp 16 07/23/17 08:44 BP 157/100 07/23/17 08:44 Pulse Ox 96 07/23/17 08:44 Intake & Output 07/22/17 07/23/17 07/23/17 18:59 06:59 18:59 Intake Total 600 300 Balance 600 300 Intake: Oral 600 300 Other: # Voids 2 2 # Bowel Movements 1 1 - Constitutional General appearance: Present: obese - Respiratory Details: Decreased breath sounds at bases bilateral - Cardiovascular Rhythm: regular Heart sounds: normal: S1, S2 - Gastrointestinal Gastrointestinal Comment(s): Decreased abdominal distention General gastrointestinal: Present: decreased bowel sounds, soft - Psychiatric Psychiatric: Present: A&O x's 3, appropriate affect - Labs CBC & Chem 7: 07/22/17 06:38 07/22/17 06:38 - Imaging and Cardiology Abdominal x-ray: report reviewed Assessment and Plan Plan: Impression/plan: 1. Postop day 3 from a lap assisted splenectomy 2. Abdomen decreased abdominal distention 3. Will repeat CBC today Plan: 1. Advancing diet as patient tolerates 2. Probable discharge home in the near future
[2017-07-23 13:04] LABS: HGB 12.9 gm/dL (13.0-17.5); MCH 29.1 pg (25.0-35.0); MCHC 33.2 g/dL (31.0-37.0); MCV 87.5 fL (80.0-100.0); Mean Platelet Volume 7.5; Platelet Count 313 k/uL (150-450); RBC 4.45 m/uL (4.30-5.90); RDW 13.8 % (11.5-15.5); WBC 12.7 k/uL (3.8-10.6)
[2017-07-23 13:41] LABS: Eosinophils # (M) 0.13 k/uL (0-0.7); Lymphocytes # (M) 1.27 k/uL (1.0-4.8); Monocytes # (M) 3.05 k/uL (0-1.0); Neutrophils # (M) 8.38 k/uL (1.3-7.7); Neutrophils % (M) 66 %; Nucleated Red Blood Cells 0 /100 WBC (0-0); Total Cells Counted 200
[2017-07-23 13:52] LABS: Polychromasia Present
== END 2017-07-23 14:25 | disposition home or self-care (01) ==
LOC: OR 06:44 → 3SUR 10:23 → OR 21:51
PROVIDERS: ADMIT Surgery; ATTEND Surgery
DX: C85.17 Unspecified B-cell lymphoma, spleen (principal); C85.90 Non-Hodgkin lymphoma, unspecified, unspecified site; J44.9 Chronic obstructive pulmonary disease, unspecified; F03.90 Unspecified dementia, unspecified severity, without behavioral disturbance, psychotic disturbance, mood disturbance, and anxiety; R50.9 Fever, unspecified; D72.829 Elevated white blood cell count, unspecified; G89.29 Other chronic pain; M54.5 Low back pain; E78.5 Hyperlipidemia, unspecified; F32.9 Major depressive disorder, single episode, unspecified; M51.36 Other intervertebral disc degeneration, lumbar region; D61.818 Other pancytopenia; F11.20 Opioid dependence, uncomplicated; Z86.14 Personal history of Methicillin resistant Staphylococcus aureus infection; Z85.828 Personal history of other malignant neoplasm of skin; Z92.21 Personal history of antineoplastic chemotherapy; F17.210 Nicotine dependence, cigarettes, uncomplicated; Z79.82 Long term (current) use of aspirin; Z79.899 Other long term (current) drug therapy; Z91.030 Bee allergy status; Z53.31 Laparoscopic surgical procedure converted to open procedure
CPT/HCPCS: 38100; 97162; 86900; 86901; 88305; 80053 ×2; 85025 ×3; 85027; 86850; 86920; 86870; 86880; 88342; 88341; 74021; G0378 ×4; C1760; J2250; J2270 ×3; J1644; J2710; J2405; J2001; J1650 ×3; J3010; J1885 ×3; J0330; J2704; C9113 ×3; J1170; J0690

== ENCOUNTER → 2017-11-06 | Outpatient (CLI) | payer OTHER ==
[2017-11-06 12:37] VITALS: BP 144/98; PULSE 60; RESP 18
--- NOTE | 2017-11-06 13:18 | P.PAINPG ---
Subjective Progress Note Date: 11/06/17 This is follow-up visit for this patient with a history of severe and chronic low back pain secondary to lumbar degenerative disc disease, lumbar spondylosis with facet arthropathy, We have done an interventional pain procedure , diagnostic medial branch block and later on. We did the radiofrequency ablation of the medial branch lumbar area which was done in October 2016 The patient currently on [place] 5/325 every 6 hours when necessary, Flexeril 10 mg 3 times a day Patient denies any side effect of the medication , patient denies any excessive drowsiness or sleepiness, patient denies any suicidal ideation, Patient reported that the current medication is helping to control the pain and improve the activity of daily livings, Patient denies any motor or sensory deficit, denies any change in the bowel movement or urination, patient denies any fever or night sweats. Patient here today for follow-up visit and medication refill Objective - Vital Signs Vital signs: Vital Signs Temp Pulse 60 11/06/17 12:31 Resp 18 11/06/17 12:31 BP 144/98 11/06/17 12:31 Pulse Ox 98 11/06/17 12:31 - Exam Physical Examinations : 1-Constitutiona : Cooperative , not in acute distress . 2-HEENT : nech ; supple , no Lymphadenopathy , normal thyroid size . eyes : no ptosis , no icterus , no photophobia . ENT : normal of hearing , normal oropharynx , no Thrush . 3- Respiratory : Chest clear to auscultations Bilaterally , no wheezing , no Rhonchi . 4- Cardiovascular : regular rate and rhythem , S1 , S2 , no S3 , no S4. 5- Gastrointestinal : abdomen soft no tenderness , bowel sounds , no organomegally . 6- Genitourinary : Defferred . 7- neurologic : Cranial nerve II to XII intact , no focal neurological deffecit . 8-psychatric : alert , oriented X 3 , appropriate affect , intact judgment and insight . 9-Lymphatic : no Lymphadenopathy . 10- musculoskeltal : cervical spine = motor stregnth in the deltoid and biceps, motor stregnth biceps and the wrist extensors (C6) . motor stregnth in the triceps muscle . deep tendon reflexes normal at the biceps Right , Left normal at the brachioradia Right , Left Normal at the triceps Right ,Left cervical facet loading test positive. , Lumber spine = normal moter stegnth lower extremities ,thigh and legs .5/5 deep tendon reflexes : normal Knee Jerk , normal ankle Jerk . lumber facet Loading Test positive strait leg raising test positive at 30 degree Right , positve at 30 degree Left Fabere test positive Right and positive Left Assessment and Plan Plan: Assessment and plan= chronic low back pain secondary to lumbar degenerative disc disease , lumbar spondylosis with lumbar facet arthropathy ., He had a good result after the radiofrequency done one year ago chronic and current use of high-risk medication (opioids) Patient denies any side effects of the current pain medication and the current treatment/medication helping the patient to do activity of daily living , Diagnoses, prognosis, treatment options, including but not limited to physical therapy, medication management, interventional therapies, and surgery, were discussed with the patient All the questions answered The narcotic consent was signed and patient agreed and understood the side effects and complications of opioid treatment. Patient signed the narcotic agreement, and was orally counseled, not to overuse, not to abuse, not to Divert , not tp sell pain medication, and to take it as prescribed only, Patient was counseled not to drive or operate heavy equipment while using narcotic medication, and advised not to use alcohol or any Illicit drugs while using the narcotis, the patient's verbalized understanding that lack of compliance with any of the above instructions, will likely to cause discharge from, the pain service, not to renew his narcotic prescriptions Medication managements= patient will be given prescription refills for [place] 5/325 dispense 90 with 1 refill, Flexeril 10 mg 3 times a day dispense 90 with 1 refill She'll could benefit from radiofrequency ablation of the medial branch lumbar area at L3/L4 5/L5-S1 , the procedure will be done without any steroids because patient had avascular necrosis of the hip joint after the steroid was used in the past , Time with Patient: Less than 30 PQRS Measure Charge Sheet Measure #130: Documentation of Current Meds in Medical Chart: Patient's medications documented in chart Measure #226: Tobacco Use: Screen & Cessation Intervention: Pt screened for tobacco use AND intervention given Measure #111: Pneumonia Vaccination: Pneumococcal vaccine administered or previously received Measure #47: Advance Care Plan: Advance care planning discussed & documented, plan or surrogate given Measure #412: Opioid Treatment Agreement: Documented signed opioid trtmnt agreemnt min once during opioid trtmnt Measure #408: Opioid Therapy Follow-up Evaluation: Patient had f/u eval minimum every 3 months during opioid therapy Measure #317: Preventitive Care & Scrn High Bld Press & F/U: Pre-hypertensive or hypertensive BP documented, pt will f/u with PCP Measure #128: Body Mass Index (BMI) Screening & Follow-up: BMI documented ABOVE normal parameters - f/u documented Measure #131: Pain Assessment & Follow-up: Pain positive & plan documented Measure #431: Unhealthy Alcohol Use Preventative Care & Scrn: Patient not identified as an unhealthy alcohol user PQRS Narrative: Smoking Status Current some day smoker Do You Want the Pneumonia Vaccine Up to Date Vaccine AT THIS TIME? Narcotic Agreement Date Signed 07/20/16 Blood Pressure 144/98 Pain Intensity [Generalized] 7 Scale Used Numeric (1 - 10) Hx Alcohol Use (MH) Yes: 2 BEERS PER WEEK Home Medications: Ambulatory Orders Albuterol Inhaler [Ventolin Hfa Inhaler] 1 - 2 puff INHALATION RT-Q4H PRN Aspirin [Adult Low Dose Aspirin EC] 81 mg PO DAILY 07/12/16 Cholecalciferol [Vitamin D3] 1,000 unit PO DAILY 07/12/16 Nitroglycerin 0.4 mg SL Q5M PRN 07/12/16 Donepezil [Aricept] 10 mg PO DAILY 08/25/16 Mometasone/Formoterol [Dulera 200 Mcg/5 Mcg Inhaler] 2 puff INHALATION RT-BID Atorvastatin [Lipitor] 40 mg PO HS 11/01/16 Docusate [Colace] 100 mg PO BID #20 capsule 07/21/17 Cyclobenzaprine [Flexeril] 10 mg PO TID PRN #90 tab 11/06/17 HYDROcodone/APAP 5-325MG [[place] 5-325] 1 tab PO Q6HR PRN #90 tab 11/06/17 Hydrocodone/Acetaminophen [[place] 5-325] 1 tab PO Q6HR PRN #90 tablet 11/06/17 Controlled Substance Measures - Controlled Substance Measures Is patient prescribed a controlled substance at discharge?: Yes When asked, does pt state using other controlled substances?: No If prescribed controlled substance>3 days was MAPS reviewed?: Yes If Rx opioid, was Start Talking consent form obtained?: Yes If opioid is for acute pain is fill amount 7 days or less?: No Was information provided regarding opioid addiction?: Yes
== END | disposition home or self-care (01) ==
LOC: PNWHC3 12:18
PROVIDERS: ATTEND Specialist
DX: G89.29 Other chronic pain (principal); M51.36 Other intervertebral disc degeneration, lumbar region; M47.816 Spondylosis without myelopathy or radiculopathy, lumbar region; M46.96 Unspecified inflammatory spondylopathy, lumbar region; F17.200 Nicotine dependence, unspecified, uncomplicated; Z79.899 Other long term (current) drug therapy; Z79.82 Long term (current) use of aspirin; Z79.891 Long term (current) use of opiate analgesic
CPT/HCPCS: G0480; G0463; 80307; 80349; 80356; 80364; 99211

== ENCOUNTER 2017-11-23 09:26 | Day surgery (SDC) | payer OTHER ==
[2017-11-20 10:29] VITALS: BMI 33.9
[~2017-11-23 09:26] MED LIST changes: -HEPARIN SODIUM,PORCINE 5,000 UNIT/ML 1 ML VIAL SQ ONE; +LACTATED RINGERS 1,000 ML IV SCH; -ONDANSETRON 4 MG/2 ML VIAL IVP ONE; -ceFAZolin IN SWFI 2 GM/20 ML SYRINGE IVP ONE; -fentaNYL (PF) 50 MCG/ML 2 ML AMP IV PRN
[2017-11-23 09:48] VITALS: RESP 16; TEMP 97.7
[2017-11-23] MEDS ORDERED: LIDOCAINE 1% 20 ML VIAL (10MG/ML) FOR IV START INTRADERMA ONE (09:52)
--- NOTE | 2017-11-23 11:01 | P.PCN ---
Date of Procedure: 11/23/17 Surgeon: Erasto Treviño Description of Procedure: Procedure(s) Performed: PREOPERATIVE DIAGNOSIS: 1. Lumbar Spondylosis with Facet Arthropathy without myelopathy. 2-. Lumber degenerative disc disease POSTOPERATIVE DIAGNOSIS: 1. Lumbar Spondylosis with Facet Arthropathy without myelopathy. 2-. Lumber degenerative disc disease PROCEDURES: Right Radiofrequency thermocoagulation, L4,L5, Sacral Ala medial branch, with fluoroscopic guidance SURGEON: Erasto Treviño MD. ANESTHESIA: Moderate sedation with intravenous versed 2 mg and fentanyl 100 mcg and local infiltration with lidocaine 1% 4 ml EBL: Minimal PROCEDURE INDICATION: The patient with low back pain secondary to lumbar facet arthropathy who had more than 50% relief of pain with previous diagnostic lumbar medial branch block with bupivacaine. PROCEDURE DESCRIPTION / TECHNIQUE: The patient was seen and identified in the preoperative area. Risks, benefits, complications, including but not limited to risk of infection ,bleeding , allergic reactions to the medications and incomplete pain relief , and alternatives were discussed with the patient, the patient agreed to proceed with the procedure and signed the consent. IV was started. The operative site was marked. Patient was taken to the OR and time out was completed. The patient was placed in the prone position on the procedure table. The lumber area was prepped and draped in the usual sterile fashion. . Vital signs were closely monitored during the procedure .IV sedation was used during the procedure to decrease patients anxiety. Using AP and then oblique fluoroscopy, the ``eye of the Sascha dog corresponding to the connection between the superior and transverse articular processes of the above-mentioned levels were identified, marked, and localized with 1% lidocaine. Subsequently, a 18 [id number] radiofrequency cannula with a 10-mm active tip was advanced guided by fluoroscopy to each of the ``eyes of the Sascha dog at each site then underwent sensory testing at 50 Hz and 0 to 1 volt and motor testing at 2.5 Hz and 0 to 3 volt with local stimulation, but no radicular symptoms down the legs. Then the sites underwent radiofrequency thermocoagulation at 80 degrees celsius for 90 seconds after injecting 0.5 ml of PF lidocaine 1%. then After the thermocoagulation done , 1 ml of the block solution containing depomedrol 40 mg and 4 ml of maraine 0.5 % was injected at each levels after negative aspiration of CSF and blood and with no paresthesias. Cannulas were retracted while injecting lidocaine 1% until the needle is out.. At the end of the procedure, the skin was cleansed and bandages were applied. COMPLICATIONS: No acute complications. DISPOSITION / PLANS: The patient was placed in a supine position and transferred to the recovery area in a stable condition for observation and was discharged from the recovery room after meeting discharge criteria. Home discharge instructions given to the patient by the staff. The patient was reexamined prior to discharge. He will follow-up in the pain clinic on an as- needed basis..
[2017-11-23] MEDS ORDERED: IV FLUID CONTINUATION 1,000 ML IV ONE (11:25)
[2017-11-23 11:27] VITALS: BP 146/93; PULSE 62
--- NOTE | 2017-11-23 12:18 | FL ---
EXAMINATION TYPE: FL guided pain mgmt statistic DATE OF EXAM: 11/23/2017 COMPARISON: NONE HISTORY: Back pain TECHNIQUE: Fluoroscopy. FINDINGS/IMPRESSION: Fluoroscopic guidance was provided during procedure performed by Dr. Treviño. A total of 4 seconds of fluoroscopic time was utilized during the procedure and 2 spot images was acqu ired demonstrating multilevel localization of the lumbosacral spine.
== END 2017-11-23 11:43 | disposition home or self-care (01) ==
LOC: ORPAIN 09:26
PROVIDERS: ATTEND Pain Medicine Pain Medicine
DX: G89.29 Other chronic pain (principal); M51.36 Other intervertebral disc degeneration, lumbar region; M47.816 Spondylosis without myelopathy or radiculopathy, lumbar region; F17.200 Nicotine dependence, unspecified, uncomplicated; Z79.899 Other long term (current) drug therapy
CPT/HCPCS: 64635; 64636 ×2; J2250; J2001; J3010; 99152

== ENCOUNTER → 2018-01-01 | Outpatient (CLI) | payer OTHER ==
[2018-01-01 14:22] VITALS: BP 154/93; PULSE 70; RESP 18
--- NOTE | 2018-01-01 17:08 | P.PN ---
Progress Note - Text Progress Note Date: 01/01/18 Patient returns for followup for chronic back pain status post right lumbar radio emergency ablation. Patient states that he notes about 50% reduction in pain on the right side. He wishes to proceed with the left lumbar radiofrequency ablation. Patient had a higher expectation for overall pain relief from the procedure, I reassured the patient that 50% relief is adequate. I discussed the procedure risks and benefits with the patient. We will schedule for the next available date. In addition to above, 13-point review of systems is also negative for chest pain , shortness of breath, changes in vision, changes in hearing, new onset weakness , abdominal pain, diarrhea, extreme fatigue, malaise, fever, skin changes, homicidal or suicidal ideation, or bowel or bladder incontinence. Vital Signs: Reviewed in EMR Gen: WDWN, AAOx3, NAD HEENT: NCAT, EOMI, hearing grossly normal Pulm: resp unlabored Abd: soft, NT, ND Neck: supple, trachea midline ROM in flexion lumbar spine: reduced ROM in extension lumbar spine: reduced Lumbar paravertebral tenderness: + Facet loading: + bilateral, L >> R SI joint tenderness: neg Christopher's test: + L > R side Straight leg raise: neg Neuro: CN II-XII grossly intact, muscle strength lower extremities PRESERVED Imaging: Reviewed in EMR Assessment: 1. lumbar spondylosis without myelopathy 2. SIJ dysfunction 3. chronic pain syndrome Plan: 1. Explanation: Opioid and psychological risk scores were reviewed. Diagnoses , prognoses, and multiple treatment options including but not limited to physical therapy, interventional therapies, adjuvant medical therapies, narcotic medication therapies, and surgery were discussed with the patient and all questions were answered to the patient's satisfaction. 2. Opioid agreement: Patient has previously signed narcotic agreement, and was orally counseled to not overuse, abuse, divert, or cell medications, and to take them as prescribed by only 1 healthcare provider. The patient was also counseled to store opioid medications in a safe and preferably locked location. Patient was also counseled against driving or operating heavy equipment while using narcotic medications and also to not use alcohol or any illicit or recreational drugs. The patient verbalized understanding that lack of compliance with any of the above and likely result in failure to renew narcotic prescriptions, possible discharge from the clinic, and possible legal ramifications thereafter if indicated. 3. Counseling: The patient was counseled extensively on SMOKING CESSATION, BODY MASS INDEX, EXERCISE. Specifically, the patient was instructed regarding the importance of smoking cessation, weight control, and exercise in the context of both chronic pain and overall health. 4. Procedures: Left lumbar radiofrequency ablation L3-L4, L4-L5, L5-S1 5. Consultations: None 6. Investigations: Maps appropriate 7. Medications: [place] 5/325 #90 with one refill, Flexeril 10 mg #90 and Neurontin 100 mg #90 8. Disposition: Left lumbar radiofrequency ablation L3-L4, L4-L5, L5-S1 PQRS measures: 1-Patient's medications are documented in the chart. 2-Tobacco use is positive, counseling given 3-Patient has not had a pneumococcal vaccine. 4-Advanced care planning discussed, patient unable to give. 5-Opioid contract signed with the patient. 6-Pain positive, follow-up visit or procedure scheduled 7-Patient's blood pressure measured and documented, and patient will follow up with the primary care due to hypertension. 8-Patient's weight was measured, and body mass index ABOVE the normal limits, and counseling was done. Patient instructed to follow up with PCP. 9-Patient WAS NOT identified as an unhealthy alcohol user.
== END | disposition home or self-care (01) ==
LOC: PNWHC3 13:44
PROVIDERS: ATTEND Anesthesiology
DX: G89.4 Chronic pain syndrome (principal); M54.9 Dorsalgia, unspecified; M47.816 Spondylosis without myelopathy or radiculopathy, lumbar region; M53.3 Sacrococcygeal disorders, not elsewhere classified; F17.200 Nicotine dependence, unspecified, uncomplicated; Z71.6 Tobacco abuse counseling; Z79.891 Long term (current) use of opiate analgesic
CPT/HCPCS: 99211

== ENCOUNTER 2018-01-18 08:07 | Day surgery (SDC) | payer OTHER ==
[2018-01-15 16:27] VITALS: BMI 33.9
[2018-01-18 08:19] VITALS: RESP 16; TEMP 997.7
[2018-01-18] MEDS ORDERED: LIDOCAINE 1% 20 ML VIAL (10MG/ML) FOR IV START INTRADERMA ONE (08:22)
--- NOTE | 2018-01-18 09:11 | P.PCN ---
Date of Procedure: 01/18/18 Procedure(s) Performed: PREOPERATIVE DIAGNOSIS: 1-Lumbar Spondylosis with Facet Arthropathy without myelopathy. 2- Lumber degenerative disc disease POSTOPERATIVE DIAGNOSIS: 1- Lumbar Spondylosis with Facet Arthropathy without myelopathy. 2- Lumber degenerative disc disease PROCEDURES : Left Radiofrequency thermocoagulation, L3-L4, L4-L5, and L5-S1 medial branch, with fluoroscopic guidance ANESTHESIA: Moderate sedation with intravenous versed 2 mg and fentaneyl 50 mcg, and local infiltration with Ropivacaine 0.5 % . EBL: Minimal PROCEDURE INDICATION: The patient with low back pain secondary to lumbar facet arthropathy who had more than 50% relief of her pain with previous diagnostic lumbar medial branch block with bupivacaine. PROCEDURE DESCRIPTION / TECHNIQUE: The patient was seen and identified in the preoperative area. Risks, benefits, complications, including but not limited to risk of infection ,bleeding , allergic reactions to the medications and no complete pain releife , and alternatives were discussed with the patient, the patient agreed to proceed with the procedure and signed the consent. IV was started. Vital signs remained stable throughout the procedure. Patient was taken to the OR and time out was completed. The patient was placed in the prone position on the procedure table. The lumber area was prepped and draped in the usual sterile fashion. . Vital signs were closely monitored during the procedure .IV sedation was used during the procedure to decrease patients anxiety. Using AP and then oblique fluoroscopy, the ``eye of the Sascha dog corresponding to the connection between the superior and transverse articular processes of Left L3, L4, and L5 were identified, marked, and localized with 1 % lidocaine. Subsequently, a 18 [id number] radiofrequency cannula with a 10- mm active tip was advanced guided by fluoroscopy to each of the ``eyes of the Sascha dog at Left L3, L4, and L5. Each site then underwent sensory testing at 50 Hz and 0 to 1 volt and motor testing at 2.5 Hz and 0 to 3 volt with local stimulation, but no radicular symptoms down the legs. Thereafter the Left L3-4, L4-5, and L5-S1 sites underwent radiofrequency thermocoagulation at 80 degrees celsius for 90 seconds after injecting 0.5 ml of PF Ropivacaine 1ml ,then After the thermocoagulation done , 1 ml of the block solution containing Kenalog 40 mg and 3 ml of Ropivacaine 0.5% was injected at the Left L3-4 , L4-5 , and L5-S1, levels after negative aspiration of CSF and blood and with no paresthesias. Cannulas were retracted while injecting lidocaine 1% until the needle is out. At the end of the procedure, the skin was cleansed and bandages were applied. COMPLICATIONS: No acute complications. DISPOSITION / PLANS: The patient was placed in a supine position and transferred to the recovery area in a stable condition for observation and was discharged from the recovery room after meeting discharge criteria. Home discharge instructions given to the patient by the staff. The patient was reexamined prior to discharge. The patient will schedule a follow up in the clinic in 2-4 weeks.
--- NOTE | 2018-01-18 09:15 | P.PN ---
Progress Note - Text Progress Note Date: 01/18/18 This is addendum to the note dictated earlier, there was no steroid was injected for the procedure, I mixed 30 mg of Toradol, mixed with ropivacaine 0.5 % 3 mL, and 1 mL of the mixture injected ,at each level after negative aspiration , Kenalog was not used , and the patient ,did not get any Kenalog , for the procedure,
[2018-01-18] MEDS ORDERED: IV FLUID CONTINUATION 1,000 ML IV ONE ×2 (09:19)
[2018-01-18 09:36] VITALS: BP 164/94; PULSE 65
--- NOTE | 2018-01-18 09:56 | FL ---
EXAMINATION TYPE: FL guided pain mgmt statistic DATE OF EXAM: 01/18/2018 FLUOROSCOPY Fluoroscopy time of 7 seconds was used during left lumbar radiofrequency ablation. 3 image/s documen t/s the procedure.
== END 2018-01-18 10:08 | disposition home or self-care (01) ==
LOC: ORPAIN 08:07
PROVIDERS: ATTEND Specialist
DX: M51.36 Other intervertebral disc degeneration, lumbar region (principal); M47.816 Spondylosis without myelopathy or radiculopathy, lumbar region
CPT/HCPCS: 64635; 64636 ×2; J2250; J3010; 99152

== ENCOUNTER 2018-02-19 15:22 | Emergency (ER) | payer OTHER ==
[2018-02-19] MEDS ORDERED: MECLIZINE 12.5 MG TAB PO STA (16:13)
[2018-02-19] MEDS ORDERED: ONDANSETRON 4 MG/2 ML VIAL IVP STA (16:13)
[2018-02-19] MEDS ORDERED: SODIUM CHLORIDE 0.9% 1,000 ML IV STA ×2 (16:13)
[2018-02-19] MEDS ORDERED: IPRATROPIUM-ALBUTEROL 3 ML NEB INHALATION STA (16:15)
--- NOTE | 2018-02-19 16:22 | ED ---
Dizziness HPI - General Source: patient, family, RN notes reviewed, old records reviewed Mode of arrival: wheelchair Limitations: no limitations <Magali Swift - Last Filed: 02/19/18 17:34> <Abdiel Neville - Last Filed: 02/19/18 18:35> - General Chief Complaint: Dizziness Stated Complaint: dizziness/congestion Time Seen by Provider: 02/19/18 15:58 - History of Present Illness Initial Comments: Patient is a 57-year-old male presents for something to complain of dizziness. He has been having dizzy episodes intermittently for the past month. He was diagnosed vertigo approximately one month ago at [facility]. He's been using Antivert pills but they've not been helping. Patient reports that he also has had increased cough congestion over the past 10 days. He has a history of splenectomy and once reevaluated for concerns for the increased cough and congestion. He states that when he has the dizzy episodes a seemed to any change in position. He relates that the room feels like it spinning. He does have a history of cerumen impaction in the left ear. He has had no headache. He denies any chest pain or shortness of breath. (Magali Swift) - Related Data Home Medications Medication Instructions Recorded Confirmed Hydrocodone/Acetaminophen 1 tab PO Q8H PRN 11/06/17 02/19/18 [Hydrocodon-Acetaminophen 5-325] Dm/Acetaminophen/Doxylamine [Vicks 30 ml PO Q6H PRN 02/19/18 02/19/18 Nyquil Cold-Flu Liquid] Mv-Min/Vit C/Glut/Lysine/Hc124 3 tab PO DAILY PRN 02/19/18 02/19/18 [Airborne Tablet Chewable] guaiFENesin SYRUP 100MG/5ML 200 mg PO Q4H PRN 02/19/18 02/19/18 [Robitussin] Previous Rx's Medication Instructions Recorded Cyclobenzaprine [Flexeril] 10 mg PO TID PRN #90 tab 11/06/17 Azithromycin [Zithromax Z-pack] 250 mg PO DIRECTED #6 tab 02/19/18 Meclizine [Antivert] 12.5 mg PO QID #12 tablet 02/19/18 Allergies Allergy/AdvReac Type Severity Reaction Status Date / Time venom-honey bee Allergy Anaphylaxis Verified 02/19/18 16:03 STEROIDS AdvReac Unknown Uncoded 02/19/18 15:50 Review of Systems ROS Other: All systems not noted in ROS Statement are negative. <Magali Swift - Last Filed: 02/19/18 17:34> ROS Other: All systems not noted in ROS Statement are negative. <Abdiel Neville - Last Filed: 02/19/18 18:35> ROS Statement: Those systems with pertinent positive or pertinent negative responses have been documented in the HPI. Past Medical History Past Medical History: Cancer, Chest Pain / Angina, COPD, Dementia, Osteoarthritis (OA) Additional Past Medical History / Comment(s): all over body pain, rt hip and leg , neck and back pain, enlarged spleen, nonhodgkins lymphoma x2- 2010, 2016. , SKIN CANCER. History of Any Multi-Drug Resistant Organisms: MRSA Date of last positivie culture/infection: 2012 MDRO Source:: LT EAR Past Surgical History: Heart Catheterization, Hernia Repair, Joint Replacement, Orthopedic Surgery Additional Past Surgical History / Comment(s): rt hip replacement, rt rotator cuff repair, lt wrist plate, 4 bone marrow biopsies, heart cath 08/23/16, port inserted/later removed, PAIN CLINIC PROCEDURES, spleenectomy Past Anesthesia/Blood Transfusion Reactions: Previous Problems w/ Anesthesia, Motion Sickness Additional Past Anesthesia/Blood Transfusion Reaction / Comment(s): woke up during surgery Past Psychological History: Depression Smoking Status: Current some day smoker Past Alcohol Use History: Occasional Past Drug Use History: None Reported - Past Family History Mother Family Medical History: No Reported History <Magali Swift - Last Filed: 02/19/18 17:34> General Exam Limitations: no limitations General appearance: alert, in no apparent distress Head exam: Present: atraumatic, normocephalic, normal inspection Eye exam: Present: normal appearance, PERRL, EOMI. Absent: scleral icterus, conjunctival injection, periorbital swelling ENT exam: Present: normal exam, mucous membranes moist. Absent: TM's normal bilaterally (Cerumen impaction left TM.) Neck exam: Present: normal inspection. Absent: tenderness, meningismus, lymphadenopathy Respiratory exam: Present: wheezes (His exam of her left lung base.). Absent: normal lung sounds bilaterally, respiratory distress, rales, rhonchi, stridor Cardiovascular Exam: Present: regular rate, normal rhythm, normal heart sounds. Absent: systolic murmur, diastolic murmur, rubs, gallop, clicks GI/Abdominal exam: Present: soft, normal bowel sounds. Absent: distended, tenderness, guarding, rebound, rigid Extremities exam: Present: normal inspection, full ROM, normal capillary refill. Absent: tenderness, pedal edema, joint swelling, calf tenderness Back exam: Present: normal inspection Neurological exam: Present: alert, oriented X3, CN II-XII intact Psychiatric exam: Present: normal affect, normal mood Skin exam: Present: warm, dry, intact, normal color. Absent: rash <Magali Swift - Last Filed: 02/19/18 17:34> <Abdiel Neville - Last Filed: 02/19/18 18:35> - General Exam Comments Initial Comments: This is a 57-year-old male. Alert and oriented. No significant distress. ( Magali Swift) Vital Signs 02/19/18 02/19/18 02/19/18 15:50 17:08 17:15 Temperature 97.4 F L Pulse Rate 71 60 61 Respiratory 18 16 16 Rate Blood Pressure 162/96 O2 Sat by Pulse 95 Oximetry Medical Decision Making - Lab Data Result diagrams: 02/19/18 16:38 02/19/18 16:38 - Radiology Data Radiology results: report reviewed <Magali Swift - Last Filed: 02/19/18 17:34> - Lab Data Result diagrams: 02/19/18 16:38 02/19/18 16:38 - Radiology Data Radiology results: image reviewed (Chest x-ray shows no acute process) <Abdiel Neville - Last Filed: 02/19/18 18:35> - Medical Decision Making 49-year-old male presents for department with chief complaint of dizziness for the past month. Patient reports he feels like he room is spinning. He does have some evidence of cerumen impaction in left ear. He did have a computed tomography scan earlier this month is negative for any acute process. This was done at [place]. Patient reports that he had worsening dizziness today. At this time Patient denies any specific chest pain but he has had an increased cough over the past few days has been feeling ill for the past week. At this time Patient is concerned with history of splenectomy liquids be something more going on. We did start IV fluids and check labs. EKG was performed and shows no evidence of any acute process. Patient this time has no signs of significant distress. Currently pending troponin. Troponin is negative Patient can be discharged home. Final disposition by Dr. Neville. We'll discharge the Patient with Antivert for some for vertigo as well as azithromycin. (Magali Swift) Patient reevaluated and resting comfortably in bed. Patient symptom-free at this time. Patient did get up without any difficulty. Patient has been having cough for the past 10 days or so. Chest x-ray shows no acute process. Patient states cough does occasionally have some productive sputum. Secondary to history of splenectomy patient will be covered with antibiotics. Patient and family updated on results as well as need for follow-up. (Abdiel Neville) - Lab Data Lab Results 02/19/18 02/19/18 02/19/18 Range/Units 16:35 16:38 16:38 WBC 8.6 (3.8-10.6) k/uL RBC 5.70 (4.30-5.90) m/uL Hgb 17.0 (13.0-17.5) gm/dL Hct 53.5 H (39.0-53.0) % MCV 93.9 (80.0-100.0) fL MCH 29.8 (25.0-35.0) pg MCHC 31.8 (31.0-37.0) g/dL RDW 14.7 (11.5-15.5) % Plt Count 366 (150-450) k/uL Neutrophils % 60 % Lymphocytes % 22 % Monocytes % 9 % Eosinophils % 5 % Basophils % 1 % Neutrophils # 5.1 (1.3-7.7) k/uL Lymphocytes # 1.9 (1.0-4.8) k/uL Monocytes # 0.8 (0-1.0) k/uL Eosinophils # 0.4 (0-0.7) k/uL Basophils # 0.1 (0-0.2) k/uL Sodium 139 (137-145) mmol/L Potassium 5.2 H (3.5-5.1) mmol/L Chloride 105 (98-107) mmol/L Carbon Dioxide 29 (22-30) mmol/L Anion Gap 5 mmol/L BUN 12 (9-20) mg/dL Creatinine 0.62 L (0.66-1.25) mg/dL Est GFR (CKD-EPI)AfAm >90 (>60 ml/min/1.73 sqM) Est GFR (CKD-EPI)NonAf >90 (>60 ml/min/1.73 sqM) Glucose 105 H (74-99) mg/dL Plasma Lactic Acid Maverick (0.7-2.0) mmol/L Calcium 10.1 (8.4-10.2) mg/dL Total Bilirubin 0.8 (0.2-1.3) mg/dL AST 48 (17-59) U/L ALT 57 (21-72) U/L Alkaline Phosphatase 88 (38-126) U/L Troponin I <0.012 (0.000-0.034) ng/mL Total Protein 8.2 (6.3-8.2) g/dL Albumin 4.4 (3.5-5.0) g/dL 02/19/18 Range/Units 16:38 WBC (3.8-10.6) k/uL RBC (4.30-5.90) m/uL Hgb (13.0-17.5) gm/dL Hct (39.0-53.0) % MCV (80.0-100.0) fL MCH (25.0-35.0) pg MCHC (31.0-37.0) g/dL RDW (11.5-15.5) % Plt Count (150-450) k/uL Neutrophils % % Lymphocytes % % Monocytes % % Eosinophils % % Basophils % % Neutrophils # (1.3-7.7) k/uL Lymphocytes # (1.0-4.8) k/uL Monocytes # (0-1.0) k/uL Eosinophils # (0-0.7) k/uL Basophils # (0-0.2) k/uL Sodium (137-145) mmol/L Potassium (3.5-5.1) mmol/L Chloride (98-107) mmol/L Carbon Dioxide (22-30) mmol/L Anion Gap mmol/L BUN (9-20) mg/dL Creatinine (0.66-1.25) mg/dL Est GFR (CKD-EPI)AfAm (>60 ml/min/1.73 sqM) Est GFR (CKD-EPI)NonAf (>60 ml/min/1.73 sqM) Glucose (74-99) mg/dL Plasma Lactic Acid Maverick 1.4 (0.7-2.0) mmol/L Calcium (8.4-10.2) mg/dL Total Bilirubin (0.2-1.3) mg/dL AST (17-59) U/L ALT (21-72) U/L Alkaline Phosphatase (38-126) U/L Troponin I (0.000-0.034) ng/mL Total Protein (6.3-8.2) g/dL Albumin (3.5-5.0) g/dL 02/19/18 17:13 EKG shows normal sinus rhythm, cannot rule out anterior infarct age undetermined. Abnormal EKG noted. Ventricular rate of 65 beats were minute. Interval is 162 ms. QRS duration 102 ms. QTC is 424/440 ms. (Magali Swift) - Radiology Data Chest x-rays negative for any acute cardio pulmonary process. (Magali Swift) Disposition Is patient prescribed a controlled substance at d/c from ED?: No Time of Disposition: 17:35 <Magali Swift - Last Filed: 02/19/18 17:34> <Abdiel Neville - Last Filed: 02/19/18 18:35> Clinical Impression: Vertigo, Bronchitis Disposition: HOME SELF-CARE Condition: Good Prescriptions: Azithromycin [Zithromax Z-pack] 250 mg PO DIRECTED #6 tab Meclizine [Antivert] 12.5 mg PO QID #12 tablet Referrals: Emeka Goodwin MD [Primary Care Provider] - 1-2 days Mario Valadez MD [STAFF PHYSICIAN] - 1-2 days Wally Oneal MD [STAFF PHYSICIAN] - 1-2 days
[2018-02-19 16:47] LABS: Basophils # (A) 0.1 k/uL (0-0.2); Basophils % (A) 1 %; Eosinophils # (A) 0.4 k/uL (0-0.7); Eosinophils % (A) 5 %; HCT 53.5 % (39.0-53.0); Lymphocytes # (A) 1.9 k/uL (1.0-4.8); Lymphocytes % (A) 22 %; MCH 29.8 pg (25.0-35.0); MCHC 31.8 g/dL (31.0-37.0); MCV 93.9 fL (80.0-100.0); Mean Platelet Volume 6.6; Monocytes # (A) 0.8 k/uL (0-1.0); Monocytes % (A) 9 %; Neutrophils # (A) 5.1 k/uL (1.3-7.7); Neutrophils % (A) 60 %; Platelet Count 366 k/uL (150-450); RDW 14.7 % (11.5-15.5); WBC 8.6 k/uL (3.8-10.6)
[2018-02-19 16:56] LABS: Anion Gap 5 mmol/L; Blood Urea Nitrogen 12 mg/dL (9-20); Calcium 10.1 mg/dL (8.4-10.2); Carbon Dioxide 29 mmol/L (22-30); Chloride 105 mmol/L (98-107); Glucose 105 mg/dL (74-99); Sodium 139 mmol/L (137-145); Total Bilirubin 0.8 mg/dL (0.2-1.3)
[2018-02-19 16:57] LABS: ALT 57 U/L (21-72); AST 48 U/L (17-59); Albumin 4.4 g/dL (3.5-5.0); Alkaline Phosphatase 88 U/L (38-126); Potassium 5.2 mmol/L (3.5-5.1); Total Protein 8.2 g/dL (6.3-8.2)
--- NOTE | 2018-02-19 17:11 | XR ---
EXAMINATION TYPE: XR chest 2V DATE OF EXAM: 02/19/2018 COMPARISON: NONE HISTORY: Dizziness, cough and congestion for one week. Chest pain per order. TECHNIQUE: Frontal and lateral views of the chest are obtained. FINDINGS: There is no focal air space opacity, pleural effusion, or pneumothorax seen. The cardiac silhouette size is within normal limits. The osseous structures are intact. IMPRESSION: No acute cardiopulmonary process.
[2018-02-19 18:46] VITALS: BP 153/92; PULSE 70; RESP 18; TEMP 98
== END 2018-02-19 18:43 | disposition home or self-care (01) ==
LOC: EC 15:22
DX: J44.9 Chronic obstructive pulmonary disease, unspecified (principal); R42 Dizziness and giddiness; H61.22 Impacted cerumen, left ear; F17.200 Nicotine dependence, unspecified, uncomplicated; Z79.899 Other long term (current) drug therapy; Z91.030 Bee allergy status; Z88.8 Allergy status to other drugs, medicaments and biological substances; Z95.818 Presence of other cardiac implants and grafts; Z86.14 Personal history of Methicillin resistant Staphylococcus aureus infection; Z85.72 Personal history of non-Hodgkin lymphomas; Z85.828 Personal history of other malignant neoplasm of skin; Z96.641 Presence of right artificial hip joint
CPT/HCPCS: 36415; 94640; 93005; 80053; 83605; 84484; 85025; 71046; 99284; 96374; 96361 ×2; J2405

== ENCOUNTER → 2018-02-26 | Outpatient (CLI) | payer OTHER ==
[2018-02-26 13:15] VITALS: BP 163/104; PULSE 77; RESP 16
--- NOTE | 2018-02-26 13:39 | P.PN ---
Subjective Progress Note Date: 02/26/18 This is a 57-year-old gentleman with history of chronic lower back pain that goes across his lower back and down the upper part of his legs. The patient denies any bowel or bladder dysfunction or any weakness in the lower extremities. He also denies any numbness or tingling in the lower extremities. His pain has been well-controlled with a combination of interventional pain procedures and oral opioids. He takes 3 times a day as needed of [place] 5 mg. The patient had only one month of pain relief after his lumbar medial branch RFA. Today, pt denies new-onset weakness, bowel/bladder incontinence, or any other signs or symptoms of cauda equina syndrome. There are no signs of acute intoxication, and no indications of medication diversion or overuse. In addition to above, 13-point review of systems is also negative for chest pain , shortness of breath, changes in vision, changes in hearing, new onset weakness , abdominal pain, diarrhea, extreme fatigue, malaise, fever, skin changes, homicidal or suicidal ideation, or bowel or bladder incontinence. Vital Signs: Reviewed in EMR Gen: AAOx3, NAD HEENT: PERRLA,hearing grossly normal Pulm: resp unlabored,CTA Heart:S1,S2, No Mur Neck: supple, trachea midline Neuro exam of the lower extremities: Normal muscle strength and deep tendon reflexes Straight leg raising test: Negative bilaterally Tenderness in the paravertebral musculature: Mildly positive bilaterally Neuro: CN II-XII grossly intact, Imaging: Reviewed in EMR/chart Assessment: Lumbar spondylosis without myelopathy Lumbar degenerative disc disease hypertension Plan: 1. Explanation: Opioid and psychological risk scores were reviewed. Diagnoses , prognoses, and multiple treatment options including but not limited to physical therapy, interventional therapies, adjuvant medical therapies, narcotic medication therapies, and surgery were discussed with the patient and all questions were answered to the patient's satisfaction. 2. Opioid agreement: Signed with the patient and the patient is warned not to use opioids while driving or before driving and not to combine opioids with benzodiazepines or alcohol. 3. Counseling: The patient was counseled extensively on SMOKING CESSATION, BODY MASS INDEX, EXERCISE. Specifically, the patient was instructed regarding the importance of smoking cessation, obesity, and exercise in the context of both chronic pain and overall health. 4. Procedures: None at this point 5. Consultations: Follow-up with his family physician for elevated blood pressure 6. Investigations: None 7. Medications: Continue with [place] 5 mg 3 times a day as needed for pain I will give him prescription for 90 pills with 1 refill 8. Disposition: Present to clinic in 2 months for reevaluation 9. Maps were reviewed and were appropriate. MME/Day: Objective - Vital Signs Vital signs: Vital Signs Temp Pulse 77 02/26/18 13:12 Resp 16 02/26/18 13:12 BP 163/104 02/26/18 13:12 Pulse Ox 96 02/26/18 13:12 Intake & Output 02/25/18 02/26/18 02/26/18 18:59 06:59 18:59 Weight 97.522 kg
== END ==
LOC: PNWHC3 12:46
PROVIDERS: ATTEND Anesthesiology
DX: M51.36 Other intervertebral disc degeneration, lumbar region (principal); M47.816 Spondylosis without myelopathy or radiculopathy, lumbar region; I10 Essential (primary) hypertension; Z79.891 Long term (current) use of opiate analgesic
CPT/HCPCS: 80307; G0482; G0463; 99211

== ENCOUNTER → 2018-04-23 | Outpatient (CLI) | payer OTHER ==
[2018-04-23 13:25] VITALS: BP 170/92; PULSE 72; RESP 16
--- NOTE | 2018-04-23 13:53 | P.PN ---
Subjective Progress Note Date: 04/23/18 Principal diagnosis: Low back pain Rudolph is a 49-year-old gentleman presents today for follow-up. He presents today with his . He continues to have low back pain at this time. He's had radiofrequency ablation and they reported that his pain did not significantly improved. On today's visit there requesting increase in pain medication secondary to his pain. He denies any new numbness or tingling or new radicular symptoms. He reports that he is taking his medication as prescribed and has denied any side effects from the current medication regimen. I discussed with him that on his previous urine drug screen that was positive for alcohol and he denies using alcohol regularly or having any problems with alcohol abuse. Objective - Vital Signs Vital signs: Vital Signs Temp Pulse 72 04/23/18 13:17 Resp 16 04/23/18 13:17 BP 170/92 04/23/18 13:17 Pulse Ox 96 04/23/18 13:17 Intake & Output 04/22/18 04/23/18 04/23/18 18:59 06:59 18:59 Weight 99.79 kg - Exam General: Awake and alert oriented 3 no distress Respiratory exam: No audible wheezing no accessory muscle usage Cardiovascular exam: regular rate, palpable bilateral pulses, no lower extremity edema Abdominal exam: No distention nontender to palpation Cervical spine: Normal alignment, Spurling's negative, facet loading negative Lumbar spine: Loss of lumbar lordosis, normal alignment, tender to palpation over bilateral paraspinal muscles, facet loading is positive bilaterally. Straight leg raise is negative. Sacroiliac joints: Nontender to palpation, LINDSEY is negative, Ga[place]elon negative Neuro exam: Normal sensation in bilateral upper extremities, deep tendon reflexes are 2+ bilateral upper extremities. Normal sensation in bilateral lower extremities. Deep tendon reflexes are 2+ in lower extremities Psych exam: Cooperative, appropriate mood Assessment and Plan Assessment: #1 lumbar spondylosis without myelopathy #2 opioid dependence Plan: I discussed with the patient risks and benefits of using opioid pain medications. He decided narcotic contract I discussed with him the risks of using alcohol along with narcotic pain medication. I discussed the risks of overdose and potentially . Patient denies using any alcohol with his pain medications. Patient has signed a narcotics contract and is signed the opioid started talking form. I will refill his medications with no change today. I will also draw another urine drug screen on today's visit. I've given the patient to prescriptions dated 28 days apart with less prescription not to be filled before 06/06/2018. We will see the patient back in 10 weeks' time Please follow up on the urine drug screen on the next visit
== END ==
LOC: PNWHC3 12:58
PROVIDERS: ATTEND Hospitalist
DX: M47.816 Spondylosis without myelopathy or radiculopathy, lumbar region (principal); F11.20 Opioid dependence, uncomplicated
CPT/HCPCS: 80307; G0482; G0463; 99211

== ENCOUNTER → 2018-07-02 | Outpatient (CLI) | payer OTHER ==
[2018-07-02 14:46] VITALS: BP 135/92; PULSE 65; RESP 16
--- NOTE | 2018-07-02 17:30 | P.PN ---
Progress Note - Text Progress Note Date: 07/02/18 Patient returns for followup for chronic back pain status, has had bilateral lumbar radio frequency ablations with good results greater than 50% relief. VAS today is 5 out of 10 in severity throbbing, aching, stabbing pain across his low back into his upper buttocks bilaterally. Medication and procedures provide him with greater than 60% relief. He takes 3 [place] a day with no complications. There are some questions regarding his previous urine drug screens being positive for alcohol metabolites. Does not have any complaints of motor sensory deficits. In addition to above, 13-point review of systems is also negative for chest pain , shortness of breath, changes in vision, changes in hearing, new onset weakness , abdominal pain, diarrhea, extreme fatigue, malaise, fever, skin changes, homicidal or suicidal ideation, or bowel or bladder incontinence. Vital Signs: Reviewed in EMR Gen: WDWN, AAOx3, NAD HEENT: NCAT, EOMI, hearing grossly normal Pulm: resp unlabored Abd: soft, NT, ND Neck: supple, trachea midline ROM in flexion lumbar spine: reduced ROM in extension lumbar spine: reduced Lumbar paravertebral tenderness: + Facet loading: + bilateral, L >> R SI joint tenderness: neg Christopher's test: + L > R side Straight leg raise: neg Neuro: muscle strength lower extremities PRESERVED Imaging: Reviewed in EMR Assessment: 1. lumbar spondylosis without myelopathy 2. SIJ dysfunction 3. chronic pain syndrome Plan: 1. Explanation: Opioid and psychological risk scores were reviewed. Diagnoses , prognoses, and multiple treatment options including but not limited to physical therapy, interventional therapies, adjuvant medical therapies, narcotic medication therapies, and surgery were discussed with the patient and all questions were answered to the patient's satisfaction. 2. Opioid agreement: Patient has previously signed narcotic agreement, and was orally counseled to not overuse, abuse, divert, or cell medications, and to take them as prescribed by only 1 healthcare provider. The patient was also counseled to store opioid medications in a safe and preferably locked location. Patient was also counseled against driving or operating heavy equipment while using narcotic medications and also to not use alcohol or any illicit or recreational drugs. The patient verbalized understanding that lack of compliance with any of the above and likely result in failure to renew narcotic prescriptions, possible discharge from the clinic, and possible legal ramifications thereafter if indicated. 3. Counseling: The patient was counseled extensively on SMOKING CESSATION, BODY MASS INDEX, EXERCISE. Specifically, the patient was instructed regarding the importance of smoking cessation, weight control, and exercise in the context of both chronic pain and overall health. 4. Procedures: Potentially repeat RFA after next appointment. 5. Consultations: None 6. Investigations: Maps appropriate, UDS positive for ETG at levels equal to > 2600 and >4900. UDS was done again today, patient states he has not had any alcohol in greater than 24 hours. 7. Medications: Will cut [place] 5 mg/325 mg from 90 tablets to 50 tablets pending UDS results for alcohol levels. If elevated patient understands he will not be given a prescription for narcotics. We will decrease in order to avoid any withdrawal symptoms 8. Disposition: Patient has had 2 urine drug screens and positive for ETG patient and edema deny the patient has a drinking problem or consumes excessive amounts of alcohol. The patient does admit to drinking alcohol 1-2 beers daily at the most however not an excessive abuse of amounts. Return to clinic in 4 weeks review urine drug screen results for alcohol, and if positive do not refill narcotics. PQRS measures: 1-Patient's medications are documented in the chart. 2-Tobacco use is positive, counseling given 3-Patient has not had a pneumococcal vaccine. 4-Advanced care planning discussed, patient unable to give. 5-Opioid contract signed with the patient. 6-Pain positive, follow-up visit or procedure scheduled 7-Patient's blood pressure measured and documented, and patient will follow up with the primary care due to hypertension. 8-Patient's weight was measured, and body mass index ABOVE the normal limits, and counseling was done. Patient instructed to follow up with PCP. 9-Patient WAS NOT identified as an unhealthy alcohol user.
== END | disposition home or self-care (01) ==
LOC: PNWHC3 13:20
PROVIDERS: ATTEND Anesthesiology
DX: G89.4 Chronic pain syndrome (principal); M47.816 Spondylosis without myelopathy or radiculopathy, lumbar region; M53.3 Sacrococcygeal disorders, not elsewhere classified; Z51.81 Encounter for therapeutic drug level monitoring; Z98.890 Other specified postprocedural states
CPT/HCPCS: 80307; G0482; G0463; 99211

== ENCOUNTER → 2018-07-30 | Outpatient (CLI) | payer OTHER ==
[2018-07-30 13:12] VITALS: BP 150/76; PULSE 48; RESP 16
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
== END ==
LOC: PNWHC3 12:47
PROVIDERS: ATTEND Anesthesiology
DX: M47.816 Spondylosis without myelopathy or radiculopathy, lumbar region (principal); S09.90XA Unspecified injury of head, initial encounter; Z79.891 Long term (current) use of opiate analgesic
CPT/HCPCS: 99211

== ENCOUNTER 2018-08-09 10:26 | Day surgery (SDC) | payer OTHER ==
[2018-08-07 10:43] VITALS: BMI 37.1
[~2018-08-09 10:26] MED LIST changes: +HEPARIN SODIUM,PORCINE 5,000 UNIT/ML 1 ML VIAL SQ ONE; -LACTATED RINGERS 1,000 ML IV SCH; +LIDOCAINE 1% 20 ML VIAL (10MG/ML) FOR IV START INTRADERMA PRN; +ONDANSETRON 4 MG/2 ML VIAL IVP ONE; +ceFAZolin IN SWFI 2 GM/20 ML SYRINGE IVP ONE; +fentaNYL (PF) 50 MCG/ML 2 ML AMP IV PRN
[2018-08-09] MEDS: LACTATED RINGERS 1,000 ML IV SCH (11:03)
[2018-08-09] MEDS ORDERED: fentaNYL (PF) 50 MCG/ML 2 ML AMP ONE (12:58)
[2018-08-09] MEDS ORDERED: ePHEDrine SULFATE/0.9% NACL/PF 50 MG/5 ML SYRINGE IV ONE (12:58)
[2018-08-09] MEDS ORDERED: ROCURONIUM BROMIDE 10 MG/ML 10 ML VIAL IV ONE (12:58)
[2018-08-09] MEDS ORDERED: LIDOCAINE 1% INJ 10MG/ML (20 ML MDV) ONE (12:58)
[2018-08-09] MEDS ORDERED: MIDAZOLAM 2 MG/2 ML VIAL ONE (12:58)
[2018-08-09] MEDS ORDERED: SUCCINYLCHOLINE CHLORIDE 100 MG/5 ML SYR IV ONE (12:58)
[2018-08-09] MEDS ORDERED: PHENYLEPHRINE-0.9% NACL SYG 1 MG/10 ML SYRINGE ONE (12:58)
[2018-08-09] MEDS ORDERED: NEOSTIGMINE 1 MG/ML 10 ML VIAL ONE (12:58)
[2018-08-09] MEDS ORDERED: GLYCOPYRROLATE 0.2 MG/ML 2 ML VIAL ONE (12:58)
[2018-08-09] MEDS ORDERED: PROPOFOL 10 MG/ML 20 ML VIAL IV ONE (12:58)
[2018-08-09] MEDS ORDERED: BUPIVACAIN-EPI 0.5%-1:200,000 30 ML VIAL SQ ONE ×2 (13:31)
--- NOTE | 2018-08-09 14:54 | P.OP ---
Date of Procedure: 08/09/18 Preoperative Diagnosis: Left inguinal hernia Postoperative Diagnosis: Bilateral indirect inguinal hernia Procedure(s) Performed: Robotic bilateral inguinal hernia repair with mesh Anesthesia: NITISH Surgeon: Amira Otero Pathology: none sent Condition: stable Disposition: same day Indications for Procedure: 58-year-old male presented with complaints of left groin pain. On exam he was found to have a reducible left inguinal hernia. On exam, he also had a questionable right inguinal hernia. Plan was for a robotic left inguinal hernia, possible bilateral inguinal hernia repair depending on findings during laparoscopy. The patient was excellent the risks, benefits and alternatives to the procedure and did provide consent prior to attending the operating suite. Operative Findings: Bilateral indirect inguinal hernia Description of Procedure: The patient was brought into the operating suite and placed in supine position on the operating table. Sedation was provided by anesthesia the patient underwent endotracheal intubation. A super umbilical incision was made and dissection was carried to the fascia. The fascia was incised and the abdomen was entered. A 12 mm trocar was placed. Pneumoperitoneum was achieved. The scope was placed into the abdomen the patient was noted to have superior abdomen adhesions that were not interfering with the hernia repair trocar locations. On exam of the inguinal region, the patient was noted to have bilateral indirect inguinal hernias. 2 additional ports were placed approximately 11 cm lateral to the supraumbilical port site. The robot was then docked in place. The left- sided inguinal hernia also was noted to have some adhesion of colon, likely secondary to diverticulitis. Incision was then made along the peritoneum from the medial umbilical ligament towards the lateral wall, dissection was carried to dissect the peritoneal from the abdominal wall and in the process the indirect hernia was dissected off of the spermatic cord. A window was created within the peritoneal flap to ensure placement of a mesh. An incision was then made along the right side and in similar fashion a plane was carried to dissect the indirect hernia from the spermatic cord. Both peritoneal flaps were noted to be spacious enough to contain the hernia mesh. The mesh that was used was parietex progrip mesh. The mesh was then placed within the abdomen and appropriate sides were placed. The mesh were then unfolded over the hernia sites and were noted to be appropriately in place. The peritoneal flaps were then closed with running 2-0V lock sutures. The robot was then undocked. The needles were removed from within the abdomen. A Johanna device was used to close the supraumbilical fascial defect. This was done with an 0 Vicryl suture. All skin incisions were then closed with 4-0 Vicryl subcuticular suture. Skin glue was applied. The patient was then awakened in the operating suite and taken to postanesthesia care in stable condition.
[2018-08-09 15:03] VITALS: TEMP 98.3
[2018-08-09] MEDS: HYDROmorphone 0.5 MG/0.5 ML SYRINGE IVP PRN ×2 (15:16→15:35)
[2018-08-09] MEDS ORDERED: KETOROLAC 30 MG/ML 1 ML VIAL IVP ONE (15:35)
[2018-08-09] MEDS ORDERED: LACTATED RINGERS 1,000 ML IV ONE (15:50)
[2018-08-09 16:25] VITALS: RESP 16
[2018-08-09] MEDS ORDERED: HYDROcodone/APAP 5-325MG 1 EACH TAB PO ONE (16:35)
[2018-08-09 18:23] VITALS: BP 129/80; PULSE 68
== END 2018-08-09 18:14 | disposition home or self-care (01) ==
LOC: OR 10:26
PROVIDERS: ATTEND Surgery
DX: K40.21 Bilateral inguinal hernia, without obstruction or gangrene, recurrent (principal); G30.9 Alzheimer's disease, unspecified; F02.80 Dementia in other diseases classified elsewhere, unspecified severity, without behavioral disturbance, psychotic disturbance, mood disturbance, and anxiety; M19.90 Unspecified osteoarthritis, unspecified site; J43.9 Emphysema, unspecified; I10 Essential (primary) hypertension; Z90.81 Acquired absence of spleen; Z96.641 Presence of right artificial hip joint; Z82.49 Family history of ischemic heart disease and other diseases of the circulatory system; Z79.891 Long term (current) use of opiate analgesic; Z79.899 Other long term (current) drug therapy; Z91.030 Bee allergy status; Z72.0 Tobacco use